=== PATIENT | male | born 1970 | race Two or more races ===

== ENCOUNTER 2017-07-19 13:58 | Inpatient (IN) | payer OTHER ==
[2017-07-19 17:22] VITALS: BMI 28.5
--- NOTE | 2017-07-19 19:18 | HP ---
CIWA Score - CIWA Score Nausea/Vomitin Muscle Tremors: 2 Anxiety: 3 Agitation: 0-Normal Activity Paroxysmal Sweats: 3 Orientation: 0-Oriented Tacttile Disturbances: 0-None Auditory Disturbances: 0-None Visual Disturbances: 0-None Headache: 2-Mild CIWA-Ar Total Score: 12 Admission ROS BHS - HPI Chief Complaint: Alcohol and xanax withdrawal symptoms Allergies/Adverse Reactions: Allergies Allergy/AdvReac Type Severity Reaction Status Date / Time Penicillins Allergy Severe Swelling Verified 07/19/17 17:44 Pork/Porcine Containing Allergy Intermediate Hives Verified 07/19/17 19:19 Products History of Present Illness: 47 yo male with hx of nicotine, xanax, cocaine, and alcohol dependence is her seeking detox. PMHX: Two slip disc on lower back, tendonitis Left arm and shoulder, PTSD, anxiety, depression, bipolar, insomnia. Denies suicidal / homicidal ideation or suicide attempts. Denies hx seizure or overdose hx blackouts in 2009 related to alcohol use. Last detox at [facility] on April 2017. After care plan to attend rehab at [facility]. Exam Limitations: No Limitations - Ebola screening Have you traveled outside of the country in the last 21 days: No Have you had contact with anyone from an Ebola affected area: No Have you been sick,other than usual withdrawal symptoms: No Do you have a fever: No - Review of Systems Constitutional: Chills, Changes in sleep, Unintentional Wgt. Loss (5 lbs) EENT: reports: No Symptoms Reported Respiratory: reports: No Symptoms reported Cardiac: reports: No Symptoms Reported GI: reports: Blood Streaked Bowels (when constipated), Constipated, Nausea, Poor Fluid Intake : reports: No Symptoms Reported Musculoskeletal: reports: Back Pain, Joint Pain, Muscle Pain Integumentary: reports: No Symptoms Reported Neuro: reports: No Symptoms reported Endocrine: reports: Increased Thirst Hematology: reports: See HPI, Anemia Psychiatric: reports: Orientated x3, Anxious Other Systems: Reviewed and Negative Patient History - Patient Medical History Hx Anemia: Yes (MVI ) Hx Asthma: No Hx Chronic Obstructive Pulmonary Disease (COPD): No Hx Cancer: No Hx Cardiac Disorders: No Hx Congestive Heart Failure: No Hx Hypertension: No Hx Hypercholesterolemia: No Hx Pacemaker: No HX Cerebrovascular Accident: No Hx Seizures: No Hx Dementia: No Hx Diabetes: No Hx Gastrointestinal Disorders: No Hx Liver Disease: No Hx Genitourinary Disorders: No Hx Sexually Transmitted Disorders: No Hx Renal Disease (ESRD): No Hx Thyroid Disease: No Hx Human Immunodeficiency Virus (HIV): No (Last tested April 2017) Hx Hepatitis C: No Hx Depression: Yes Hx Suicide Attempt: No Hx Bipolar Disorder: Yes Hx Schizophrenia: No - Patient Surgical History Past Surgical History: No Hx Neurologic Surgery: No Hx Cataract Extraction: No Hx Cardiac Surgery: No Hx Lung Surgery: No Hx Breast Surgery: No Hx Breast Biopsy: No Hx Abdominal Surgery: No Hx Appendectomy: No Hx Cholecystectomy: No Hx Genitourinary Surgery: No Hx Section: No Hx Orthopedic Surgery: No Anesthesia Reaction: No - PPD History Previous Implant?: Yes Documented Results: Negative w/o proof PPD to be Administered?: Yes - Reproductive History Patient is a Female of Child Bearing Age (11 -55 yrs old): No - Smoking Cessation Smoking history: Current every day smoker Have you smoked in the past 12 months: Yes Aproximately how many cigarettes per day: 8 Hx Chewing Tobacco Use: No Initiated information on smoking cessation: Yes 'Breaking Loose' booklet given: 07/19/17 - Substance & Tx. History Hx Alcohol Use: Yes Hx Substance Use: Yes Substance Use Type: Alcohol, Cocaine, Tranquilizers Hx Substance Use Treatment: Yes ([facility] April 2017) - Substances Abused Alcohol Route: Oral Frequency: Daily Amount used: liquor- 1 pint, beer- 5 - (40oz) Age of first use: 12 Date of Last Use: 07/19/17 Cocaine Route: Inhalation Frequency: Daily Amount used: 2gm Age of first use: 26 Date of Last Use: 07/18/17 Alprazolam (Xanax) Route: Oral Frequency: 3-6 times per week Amount used: 6 mg Age of first use: 34 Date of Last Use: 07/16/17 Family Disease History - Family Disease History Family Disease History: Diabetes: Mother (alive, HTN and DM ), Other: Father ( alive, HTN ), Mother Admission Physical Exam BHS - Vital Signs Vital Signs: Vital Signs - 24 hr 07/19/17 17:20 Temperature 97.7 F Pulse Rate 85 Respiratory 19 Rate Blood Pressure 137/81 - Physical General Appearance: Yes: No Apparent Distress, Nourished, Appropriately Dressed HEENTM: Yes: EOMI, Hearing grossly Normal, Normal ENT Inspection, Normocephalic , Normal Voice, UZMA, Pharynx Normal, Tm's normal Respiratory: Yes: Chest Non-Tender, Lungs Clear, Normal Breath Sounds, No Respiratory Distress, No Accessory Muscle Use Neck: Yes: No masses,lesions,Nodules, Trachea in good position Breast: Yes: Breast Exam Deferred Cardiology: Yes: Regular Rhythm, Regular Rate Abdominal: Yes: Normal Bowel Sounds, Non Tender, Flat, Soft Genitourinary: Yes: Within Normal Limits Back: Yes: Muscle Spasm Musculoskeletal: Yes: full range of Motion, Gait Steady, Other (left shoulder pain) Extremities: Yes: Normal Capillary Refill, Normal Inspection, Normal Range of Motion, Non-Tender 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 - Diagnostic (1) Cocaine dependence Current Visit: Yes Status: Acute Qualifiers: Substance use status: uncomplicated Qualified Code(s): F14.20 - Cocaine dependence, uncomplicated (2) Sedative, hypnotic or anxiolytic dependence with withdrawal, uncomplicated Current Visit: Yes Status: Acute (3) Alcohol dependence with uncomplicated withdrawal Current Visit: Yes Status: Acute (4) Chronic back pain Current Visit: Yes Status: Chronic Qualifiers: Back pain location: low back pain Back pain laterality: midline Sciatica presence: without sciatica Qualified Code(s): M54.5 - Low back pain; G89.29 - Other chronic pain; G89.29 - Other chronic pain (5) Left shoulder tendinitis Current Visit: Yes Status: Chronic (6) Insomnia Current Visit: Yes Status: Acute Qualifiers: Insomnia type: unspecified Qualified Code(s): G47.00 - Insomnia, unspecified (7) Psychiatric disorder Current Visit: Yes Status: Suspected (8) Nicotine dependence Current Visit: Yes Status: Acute Qualifiers: Nicotine product type: cigarettes Substance use status: uncomplicated Qualified Code(s): F17.210 - Nicotine dependence, cigarettes, uncomplicated Cleared for Admission [facility] - Detox or Rehab [facility] Level of Care: Medically Managed Detox Regimen/Protocol: Librium [facility] Breath Alcohol Content Breath Alcohol Content: 0 Urine Drug Screen - Results Drug Screen Negative: No Urine Drug Screen Results: [place]ocaine
[2017-07-19] MEDS ORDERED: LOPERAMIDE HCL 2 MG CAPSULE PO PRN (19:23)
[2017-07-19] MEDS ORDERED: MENTHOL/PHENOL 1 EACH UD MM PRN (19:23)
[2017-07-19] MEDS ORDERED: ACETAMINOPHEN 325 MG TABLET (FP) PO PRN (19:23)
[2017-07-19] MEDS ORDERED: hydrOXYzine PAMOATE 50 MG CAPSULE (FP) PO PRN (19:23)
[2017-07-19] MEDS ORDERED: NICOTINE POLACRILEX 2 MG GUM BC PRN (19:23)
[2017-07-19] MEDS ORDERED: guaiFENesin/D-METHORPHAN HB 10 ML UNIT-DOSE CUPS PO PRN (19:23)
[2017-07-19] MEDS ORDERED: chlordiazePOXIDE HCL 25 MG CAPSULE PO PRN (19:23)
[2017-07-19] MEDS ORDERED: IBUPROFEN 400 MG TABLET (FP) PO PRN (19:23)
[2017-07-19] MEDS ORDERED: P-EPHED 60MG/TRIPROLIDI 2.5MG TABLET PO PRN (19:23)
[2017-07-19] MEDS ORDERED: chlordiazePOXIDE HCL 25 MG CAPSULE PO ONE (19:23)
[2017-07-19] MEDS ORDERED: MAGNESIUM CITRATE 300 ML BOTTLE PO PRN (19:23)
[2017-07-19] MEDS ORDERED: MAG HYDROX/AL HYDROX/SIMETH 30 ML UNIT-DOSE CUP PO PRN (19:23)
[2017-07-19] MEDS ORDERED: MAGNESIUM HYDROX 2400MG/30ML ORAL SUSPENSION 30 ML CUP PO PRN (19:23)
[2017-07-19] MEDS ORDERED: CYCLOBENZAPRINE HCL 5 MG TABLET PO PRN (19:32)
[2017-07-19] MEDS: DOCUSATE SODIUM 100 MG CAPSULE (FP) PO SCH (20:21)
[2017-07-19] MEDS: valACYclovir HCL 500 MG TABLET (FP) PO SCH (20:21)
[2017-07-19] MEDS ORDERED: HYDROXYZINE HCL PO SCH (22:00)
[2017-07-19] MEDS: chlordiazePOXIDE HCL 25 MG CAPSULE PO SCH (22:21)
[2017-07-19] MEDS: THIAMINE HCL 100 MG TABLET (FP) PO SCH (22:21)
[2017-07-19] MEDS: MELATONIN 5 MG TABLETS PO SCH (22:21)
[2017-07-19] MEDS: GABAPENTIN 300 MG CAPSULE (FP) PO SCH (22:21)
[2017-07-19 22:54] LABS: URINE APPEARANCE CLEAR; URINE BILIRUBIN NEGATIVE (NEGATIVE); URINE BLOOD NEGATIVE (NEGATIVE); URINE COLOR YELLOW; URINE GLUCOSE (UA) NEGATIVE (NEGATIVE); URINE KETONE NEGATIVE (NEGATIVE); URINE LEUK ESTERASE NEGATIVE (NEGATIVE); URINE NITRITE NEGATIVE (NEGATIVE); URINE PROTEIN NEGATIVE (NEGATIVE); URINE UROBILINOGEN NEGATIVE mg/dL (0.2-1.0)
[2017-07-20] MEDS: GABAPENTIN 300 MG CAPSULE (FP) PO SCH ×3 (05:51→22:02)
[2017-07-20] MEDS: chlordiazePOXIDE HCL 25 MG CAPSULE PO SCH ×4 (05:51→22:03)
[2017-07-20 10:04] LABS: HEMATOCRIT 39.6 % (35.4-49); HEMOGLOBIN 13.3 GM/dL (11.7-16.9); MCH 30.9 pg (25.7-33.7); MCHC 33.7 g/dl (32.0-35.9); MEAN CELL VOLUME 91.7 fl (80-96); PLATELET COUNT 365 K/MM3 (134-434); RBC 4.31 M/mm3 (4.00-5.60)
--- NOTE | 2017-07-20 10:04 | EKG ---
Test Reason : Blood Pressure : / mmHG Vent. Rate : 081 BPM Atrial Rate : 081 BPM P-R Int : 144 ms QRS Dur : 094 ms QT Int : 368 ms P-R-T Axes : 020 022 036 degrees QTc Int : 427 ms NORMAL SINUS RHYTHM INCOMPLETE RBBB NO PREVIOUS ECGS AVAILABLE Confirmed by DELROY MARTINEZ MD ([id number]) on 07/20/2017 10:03:57 AM Referred By: Confirmed By:DELROY MARTINEZ MD
[2017-07-20 10:19] LABS: CHLORIDE 102 mmol/L (98-107); POTASSIUM 4.2 mmol/L (3.5-5.1); SODIUM 141 mmol/L (136-145)
[2017-07-20] MEDS: NICOTINE 14 MG/24 HOURS TOPICAL PATCH TD SCH (10:20)
[2017-07-20] MEDS: DOCUSATE SODIUM 100 MG CAPSULE (FP) PO SCH (10:20)
[2017-07-20] MEDS: valACYclovir HCL 500 MG TABLET (FP) PO SCH (10:20)
[2017-07-20] MEDS: PRENATAL VITAMINS W/ FOLIC ACID TABLET (FP) PO SCH (10:20)
[2017-07-20 10:25] LABS: ALBUMIN 3.4 g/dl (3.4-5.0); ALK PHOS 64 U/L (45-117); ANION GAP 11 (8-16); BILIRUBIN,TOTAL 0.4 mg/dL (0.2-1.0); BLOOD UREA NITROGEN 18 mg/dL (7-18); CALCIUM 8.8 mg/dL (8.5-10.1); CO2 28 mmol/L (21-32); CREATININE 1.1 mg/dL (0.7-1.3); GLUCOSE,RANDOM 96 mg/dL (74-106); SGOT/AST 18 U/L (15-37); SGPT/ALT 29 U/L (12-78); TOT PROT 7.6 g/dl (6.4-8.2)
[2017-07-20] MEDS: DICLOFENAC SODIUM 50 MG PO SCH ×3 (10:59→22:03)
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
--- NOTE | 2017-07-20 12:39 | PN ---
S CIWA - CIWA Score Nausea/Vomitin-Int. Nausea w/Dry Heave (AND DIARRHEA) Muscle Tremors: 3 Anxiety: 4-Mod. Anxious/Guarded Agitation: 2 Paroxysmal Sweats: No Perspiration Orientation: 0-Oriented Tacttile Disturbances: 0-None Auditory Disturbances: 0-None Visual Disturbances: 0-None Headache: 2-Mild CIWA-Ar Total Score: 15 S Progress Note (SOAP) Subjective: ANXIETY,TREMORS,HEADACHE,NAUSEA AND DIARRHEA. Objective: 07/20/17 12:38 Vital Signs Temperature 97.0 F L 07/20/17 10:33 Pulse Rate 85 07/20/17 10:33 Respiratory Rate 18 07/20/17 10:33 Blood Pressure 106/76 07/20/17 10:33 O2 Sat by Pulse Oximetry (%) Laboratory Last Values WBC 8.0 K/mm3 (4.0-10.0) 07/20/17 07:00 RBC 4.31 M/mm3 (4.00-5.60) 07/20/17 07:00 Hgb 13.3 GM/dL (11.7-16.9) 07/20/17 07:00 Hct 39.6 % (35.4-49) 07/20/17 07:00 MCV 91.7 fl (80-96) 07/20/17 07:00 MCH 30.9 pg (25.7-33.7) 07/20/17 07:00 MCHC 33.7 g/dl (32.0-35.9) 07/20/17 07:00 RDW 14.0 % (11.9-15.9) 07/20/17 07:00 Plt Count 365 K/MM3 (134-434) 07/20/17 07:00 MPV 8.0 fl (7.5-11.1) 07/20/17 07:00 Sodium 141 mmol/L (136-145) 07/20/17 07:00 Potassium 4.2 mmol/L (3.5-5.1) 07/20/17 07:00 Chloride 102 mmol/L (98-107) 07/20/17 07:00 Carbon Dioxide 28 mmol/L (21-32) 07/20/17 07:00 Anion Gap 11 (8-16) 07/20/17 07:00 BUN 18 mg/dL (7-18) 07/20/17 07:00 Creatinine 1.1 mg/dL (0.7-1.3) 07/20/17 07:00 Creat Clearance w eGFR > 60 (>60) 07/20/17 07:00 Random Glucose 96 mg/dL (74-106) 07/20/17 07:00 Calcium 8.8 mg/dL (8.5-10.1) 07/20/17 07:00 Total Bilirubin 0.4 mg/dL (0.2-1.0) 07/20/17 07:00 AST 18 U/L (15-37) 07/20/17 07:00 ALT 29 U/L (12-78) 07/20/17 07:00 Alkaline Phosphatase 64 U/L (45-117) 07/20/17 07:00 Total Protein 7.6 g/dl (6.4-8.2) 07/20/17 07:00 Albumin 3.4 g/dl (3.4-5.0) 07/20/17 07:00 Urine Color Yellow 07/19/17 20:20 Urine Appearance Clear 07/19/17 20:20 Urine pH 5.0 (5.0-8.0) 07/19/17 20:20 Ur Specific [place] 1.026 (1.001-1.035) 07/19/17 20:20 Urine Protein Negative (NEGATIVE) 07/19/17 20:20 Urine Glucose (UA) Negative (NEGATIVE) 07/19/17 20:20 Urine Ketones Negative (NEGATIVE) 07/19/17 20:20 Urine Blood Negative (NEGATIVE) 07/19/17 20:20 Urine Nitrite Negative (NEGATIVE) 07/19/17 20:20 Urine Bilirubin Negative (NEGATIVE) 07/19/17 20:20 Urine Urobilinogen Negative mg/dL (0.2-1.0) 07/19/17 20:20 Ur Leukocyte Esterase Negative (NEGATIVE) 07/19/17 20:20 HIV 1&2 Antibody Screen Negative 07/20/17 07:00 HIV P24 Antigen Negative 07/20/17 07:00 Assessment: 07/20/17 12:38 WITHDRAWAL SX Plan: CONTINUE DETOX TYLENOL PRN FOR HEADACHE IMODIUM PRN FOR DIARRHEA ZOFRAN PRN FOR NAUSEA OR VOMITING
[2017-07-20] MEDS ORDERED: ONDANSETRON *ODT* 4 MG TABLET SL PRN (12:41)
[2017-07-20] MEDS: ESCITALOPRAM OXALATE 20 MG TABLET (FP) PO SCH (13:19)
--- NOTE | 2017-07-20 15:17 | PN ---
BHS Progress Note Note: PT C/O SKIN ITHCH. NO RASH. HAS BEEN ON BENADRYL 25 MG OR ATARAX AT HOME FROM HIS DOCTOR FOR ITCH IN THE PAST. PLAN:START BENADRYL 25 MG PO TID PRN FOR ITCH.
[2017-07-20] MEDS: diphenhydrAMINE HCL 25 MG CAPSULE (FP) PO PRN (17:17)
[2017-07-20] MEDS ORDERED: QUEtiapine FUMARATE 300 MG TABLET PO SCH (22:00)
[2017-07-20] MEDS ORDERED: traZODone HCL 100 MG TABLET (FP) PO SCH (22:00)
[2017-07-20] MEDS: THIAMINE HCL 100 MG TABLET (FP) PO SCH (22:02)
[2017-07-20] MEDS: MELATONIN 5 MG TABLETS PO SCH (22:03)
[2017-07-21] MEDS: chlordiazePOXIDE HCL 25 MG CAPSULE PO SCH ×3 (05:47→21:44)
[2017-07-21] MEDS: GABAPENTIN 300 MG CAPSULE (FP) PO SCH ×2 (05:47→14:50)
[2017-07-21] MEDS: DICLOFENAC SODIUM 50 MG PO SCH (10:39)
[2017-07-21] MEDS: ESCITALOPRAM OXALATE 20 MG TABLET (FP) PO SCH (10:39)
[2017-07-21] MEDS: NICOTINE 14 MG/24 HOURS TOPICAL PATCH TD SCH (10:39)
[2017-07-21] MEDS: DOCUSATE SODIUM 100 MG CAPSULE (FP) PO SCH (10:39)
[2017-07-21] MEDS: PRENATAL VITAMINS W/ FOLIC ACID TABLET (FP) PO SCH (10:39)
[2017-07-21] MEDS: valACYclovir HCL 500 MG TABLET (FP) PO SCH (10:39)
[2017-07-21] MEDS: diphenhydrAMINE HCL 25 MG CAPSULE (FP) PO PRN (10:41)
--- NOTE | 2017-07-21 15:54 | PN ---
[facility] CIWA - CIWA Score Nausea/Vomitin-No Nausea/No Vomiting Muscle Tremors: None Anxiety: 4-Mod. Anxious/Guarded Agitation: 2 Paroxysmal Sweats: 3 Orientation: 0-Oriented Tacttile Disturbances: 3-Moderate Itch/Numb/Burn Auditory Disturbances: 2-Mild Harshness/Frighten Visual Disturbances: 2-Mild Sensitivity Headache: 0-None Present CIWA-Ar Total Score: 16 S Progress Note (SOAP) Subjective: Diarrhea, Sweating, Chills, Fatigue. Objective: PATIENT A & O X 3, OBSERVED AMBULATING ON UNIT. NO ACUTE DISTRESS. 07/21/17 15:53 Vital Signs Temperature 98.8 F 07/21/17 13:44 Pulse Rate 80 07/21/17 13:44 Respiratory Rate 18 07/21/17 13:44 Blood Pressure 111/64 07/21/17 13:44 O2 Sat by Pulse Oximetry (%) Laboratory Tests 07/19/17 07/20/17 07/20/17 20:20 07:00 07:00 WBC 8.0 RBC 4.31 Hgb 13.3 Hct 39.6 MCV 91.7 MCH 30.9 MCHC 33.7 RDW 14.0 Plt Count 365 MPV 8.0 Sodium Potassium Chloride Carbon Dioxide Anion Gap BUN Creatinine Creat Clearance w eGFR Random Glucose Calcium Total Bilirubin AST ALT Alkaline Phosphatase Total Protein Albumin Urine Color Yellow Urine Appearance Clear Urine pH 5.0 Ur Specific [place] 1.026 Urine Protein Negative Urine Glucose (UA) Negative Urine Ketones Negative Urine Blood Negative Urine Nitrite Negative Urine Bilirubin Negative Urine Urobilinogen Negative Ur Leukocyte Esterase Negative RPR Titer HIV 1&2 Antibody Screen Negative HIV P24 Antigen Negative 07/20/17 07/20/17 07:00 07:00 WBC RBC Hgb Hct MCV MCH MCHC RDW Plt Count MPV Sodium 141 Potassium 4.2 Chloride 102 Carbon Dioxide 28 Anion Gap 11 BUN 18 Creatinine 1.1 Creat Clearance w eGFR > 60 Random Glucose 96 Calcium 8.8 Total Bilirubin 0.4 AST 18 ALT 29 Alkaline Phosphatase 64 Total Protein 7.6 Albumin 3.4 Urine Color Urine Appearance Urine pH Ur Specific Duck Urine Protein Urine Glucose (UA) Urine Ketones Urine Blood Urine Nitrite Urine Bilirubin Urine Urobilinogen Ur Leukocyte Esterase RPR Titer Nonreactive HIV 1&2 Antibody Screen HIV P24 Antigen LABS NOTED. Assessment: 03/24/18 15:53 WITHDRAWAL SYMPTOMS. Plan: CONTINUE DETOX.
[2017-07-21 17:32] VITALS: BP 107/70; PULSE 64; TEMP 97.9
--- NOTE | 2017-07-21 19:20 | DS ---
[facility] Detox Discharge Summary Admission Date: 07/19/17 Discharge Date: 07/21/17 - History Additional Comments: pt insists on leaving, states he has a family emergency as his daughter is in the hospital Unsure how pt got news. Pt insists he cannot stay to complete detox A & O x 3, gait steady, no acute distress noted - Physical Exam Results Vital Signs: Vital Signs Temperature 97.9 F 07/21/17 17:32 Pulse Rate 64 07/21/17 17:32 Respiratory Rate 20 07/21/17 17:32 Blood Pressure 107/70 07/21/17 17:32 O2 Sat by Pulse Oximetry (%) Pertinent Admission Physical Exam Findings: withdrawal sx - Medication Discharge Medications: Ambulatory Orders Acetaminophen [Tylenol Arthritis] 650 mg PO DAILY 07/19/17 Diclofenac Sodium [Diclofenac Sodium ER] 50 mg PO BID 07/19/17 Escitalopram Oxalate [Lexapro -] 20 mg PO DAILY 07/19/17 Gabapentin [Neurontin -] 300 mg PO TID 07/19/17 Quetiapine Fumarate [Seroquel -] 300 mg PO BID 07/19/17 Valacyclovir HCl [Valtrex -] 500 mg PO DAILY 07/19/17 hydrOXYzine HCL [Atarax -] 50 mg PO TID 07/19/17 traZODone HCL [Desyrel -] 100 mg PO HS 07/19/17 - Diagnosis (1) Alcohol dependence with uncomplicated withdrawal Current Visit: Yes Status: Acute (2) Cocaine dependence Current Visit: Yes Status: Acute Qualifiers: Substance use status: uncomplicated Qualified Code(s): F14.20 - Cocaine dependence, uncomplicated (3) Nicotine dependence Current Visit: Yes Status: Acute Qualifiers: Nicotine product type: cigarettes Substance use status: in withdrawal Qualified Code(s): F17.213 - Nicotine dependence, cigarettes, with withdrawal (4) Sedative, hypnotic or anxiolytic dependence with withdrawal, uncomplicated Current Visit: Yes Status: Acute (5) Chronic back pain Current Visit: Yes Status: Chronic Qualifiers: Back pain location: low back pain Back pain laterality: midline Sciatica presence: without sciatica Qualified Code(s): M54.5 - Low back pain; G89.29 - Other chronic pain; G89.29 - Other chronic pain - AMA Did Patient Leave Against Medical Advice: Yes
[2017-07-21] MEDS ORDERED: chlordiazePOXIDE 5 MG CAPSULE PO SCH (23:00)
[2017-07-22] MEDS ORDERED: chlordiazePOXIDE HCL 10 MG CAPSULE PO SCH (23:00)
== END 2017-07-21 19:15 | disposition left against medical advice (07) | DRG 770 ==
LOC: YASAS 13:58 → Y3N 17:34
PROVIDERS: ADMIT Internal Medicine; ATTEND Internal Medicine
PROC: HZ2ZZZZ Detoxification Services for Substance Abuse Treatment (ICD-10-PCS; principal; 2017-07-19)
DX: F13.230 Sedative, hypnotic or anxiolytic dependence with withdrawal, uncomplicated (principal); F10.230 Alcohol dependence with withdrawal, uncomplicated; F14.20 Cocaine dependence, uncomplicated; F17.213 Nicotine dependence, cigarettes, with withdrawal; F43.10 Post-traumatic stress disorder, unspecified; F31.9 Bipolar disorder, unspecified; G47.00 Insomnia, unspecified; M54.5 Low back pain; G89.29 Other chronic pain; M75.82 Other shoulder lesions, left shoulder
CPT/HCPCS: 36415; 80053; 81003; 85027; 86593; 87389; 93005; 93010

== ENCOUNTER 2017-09-23 15:57 | Inpatient (IN) | payer OTHER ==
[2017-09-23 19:05] VITALS: BMI 27.5
--- NOTE | 2017-09-23 20:19 | HP ---
CIWA Score - CIWA Score Nausea/Vomitin Muscle Tremors: 3 Anxiety: 4-Mod. Anxious/Guarded Agitation: 0-Normal Activity Paroxysmal Sweats: 3 Orientation: 1-Uncertain about Date Tacttile Disturbances: 0-None Auditory Disturbances: 0-None Visual Disturbances: 0-None Headache: 0-None Present CIWA-Ar Total Score: 13 Admission ROS S - HPI Chief Complaint: Alcohol withdrawal symptoms Allergies/Adverse Reactions: Allergies Allergy/AdvReac Type Severity Reaction Status Date / Time Penicillins Allergy Severe Swelling Verified 09/23/17 18:58 Pork/Porcine Containing Allergy Intermediate Hives Verified 09/23/17 18:58 Products History of Present Illness: 47 years old male with history of xanax, cocaine, and alcohol dependence is seeking admission to detox. Patient has been to previous detox and reports 5 years of sobriety. He has medical history of herpes, anemia, tendonitis of the left arm, neuropathy, anxiety and depression. He denies suicidal / homicidal ideation or suicide attempts. Exam Limitations: No Limitations - Ebola screening Have you traveled outside of the country in the last 21 days: No (N) Have you had contact with anyone from an Ebola affected area: No Have you been sick,other than usual withdrawal symptoms: No Do you have a fever: No - Review of Systems Constitutional: Chills, Malaise, Night Sweats, Changes in sleep, Weakness EENT: reports: No Symptoms Reported Respiratory: reports: No Symptoms reported Cardiac: reports: No Symptoms Reported GI: reports: Diarrhea (x 2), Nausea, Poor Appetite, Poor Fluid Intake, Abdominal cramping : reports: No Symptoms Reported Musculoskeletal: reports: Back Pain, Muscle Pain Integumentary: reports: Dryness, Flushing Neuro: reports: Tingling, Tremors, Weakness Endocrine: reports: No Symptoms Reported Hematology: reports: No Symptoms Reported Psychiatric: reports: Anxious, Depressed Other Systems: Reviewed and Negative Patient History - Patient Medical History Hx Anemia: Yes (MVI ) Hx Asthma: No Hx Chronic Obstructive Pulmonary Disease (COPD): No Hx Cancer: No Hx Cardiac Disorders: No Hx Congestive Heart Failure: No Hx Hypertension: No Hx Hypercholesterolemia: No Hx Pacemaker: No HX Cerebrovascular Accident: No Hx Seizures: No Hx Dementia: No Hx Diabetes: No Hx Gastrointestinal Disorders: No Hx Liver Disease: No Hx Genitourinary Disorders: No Hx Sexually Transmitted Disorders: Yes (Herpes-Not treated and not on medication ) Hx Renal Disease (ESRD): No Hx Thyroid Disease: No Hx Human Immunodeficiency Virus (HIV): No (Last tested April 2017) Hx Hepatitis C: No Hx Depression: Yes (Seroquel) Hx Suicide Attempt: No Hx Bipolar Disorder: Yes (Trazodone, Vistaril, Lexapro) Hx Schizophrenia: No Other Medical History: Anxiety- Trazodone, Vistaril, Lexapro - Patient Surgical History Past Surgical History: No Hx Neurologic Surgery: No Hx Cataract Extraction: No Hx Cardiac Surgery: No Hx Lung Surgery: No Hx Abdominal Surgery: No Hx Appendectomy: No Hx Cholecystectomy: No Hx Genitourinary Surgery: No Hx Orthopedic Surgery: No Anesthesia Reaction: No - PPD History Previous Implant?: Yes Documented Results: Negative w/proof Implanted On Prior [facility] Admission?: Yes Date: 07/21/17 PPD to be Administered?: No - Reproductive History Patient is a Female of Child Bearing Age (11 -55 yrs old): No (MALE) - Smoking Cessation Smoking history: Current every day smoker Have you smoked in the past 12 months: Yes Aproximately how many cigarettes per day: 8 Hx Chewing Tobacco Use: No Initiated information on smoking cessation: Yes 'Breaking Loose' booklet given: 09/23/17 - Substance & Tx. History Hx Alcohol Use: Yes Hx Substance Use: Yes Substance Use Type: Cocaine Hx Substance Use Treatment: Yes ([facility]) - Substances Abused Alcohol Route: Oral Frequency: Daily Amount used: 4-5 40 ounces of beer, 1/2 pint of rum Age of first use: 12 Date of Last Use: 09/22/17 Alprazolam (Xanax) Route: Oral Frequency: 3-6 times per week Amount used: 6 mg when used Age of first use: 30 Date of Last Use: 09/21/17 Cocaine Route: Smoking Frequency: Daily Amount used: $100 Age of first use: 26 Date of Last Use: 09/23/17 Family Disease History - Family Disease History Family Disease History: Diabetes: Mother (alive, HTN and DM ), Other: Father ( alive, HTN ), Mother Admission Physical Exam BHS - Vital Signs Vital Signs: Vital Signs - 24 hr 09/23/17 18:32 Temperature 98.3 F Pulse Rate 91 H Respiratory 18 Rate Blood Pressure 127/82 - Physical General Appearance: Yes: Moderate Distress, Tremorous, Irritable, Anxious HEENTM: Yes: EOMI, Normal ENT Inspection, Normocephalic, Normal Voice, UZMA Respiratory: Yes: Lungs Clear, Normal Breath Sounds, No Respiratory Distress Neck: Yes: Supple Breast: Yes: Breast Exam Deferred Cardiology: Yes: Tachycardia Abdominal: Yes: Normal Bowel Sounds Genitourinary: Yes: Within Normal Limits Back: Yes: Normal Inspection Extremities: Yes: Normal Inspection Neurological: Yes: Alert, Normal Mood/Affect Integumentary: Yes: Dry Lymphatic: Yes: Within Normal Limits - Diagnostic (1) Depression Current Visit: Yes Status: Chronic Qualifiers: Depression Type: unspecified Qualified Code(s): F32.9 - Major depressive disorder, single episode, unspecified (2) Anxiety Current Visit: Yes Status: Chronic (3) Herpes Current Visit: Yes Status: Chronic (4) Alcohol dependence with uncomplicated withdrawal Current Visit: Yes Status: Chronic (5) Cocaine dependence Current Visit: No Status: Chronic Qualifiers: Substance use status: uncomplicated Qualified Code(s): F14.20 - Cocaine dependence, uncomplicated (6) Nicotine dependence Current Visit: Yes Status: Chronic Qualifiers: Nicotine product type: cigarettes Substance use status: in withdrawal Qualified Code(s): F17.213 - Nicotine dependence, cigarettes, with withdrawal (7) Sedative, hypnotic or anxiolytic dependence with withdrawal, uncomplicated Current Visit: Yes Status: Chronic (8) Left shoulder tendinitis Current Visit: Yes Status: Chronic [facility] Level of Care: Medically Managed Detox Regimen/Protocol: [facility] Breath Alcohol Content Breath Alcohol Content: 0 Urine Drug Screen - Results Drug Screen Negative: No Urine Drug Screen Results: [place]-Cocaine, BZO-Benzodiazepines
[2017-09-23] MEDS ORDERED: guaiFENesin/D-METHORPHAN HB 10 ML UNIT-DOSE CUPS PO PRN (20:28)
[2017-09-23] MEDS ORDERED: NICOTINE POLACRILEX 2 MG GUM BC PRN (20:28)
[2017-09-23] MEDS ORDERED: P-EPHED 60MG/TRIPROLIDI 2.5MG TABLET PO PRN (20:28)
[2017-09-23] MEDS ORDERED: MAGNESIUM CITRATE 300 ML BOTTLE PO PRN (20:28)
[2017-09-23] MEDS ORDERED: MAGNESIUM HYDROX 2400MG/30ML ORAL SUSPENSION 30 ML CUP PO PRN (20:28)
[2017-09-23] MEDS ORDERED: MAG HYDROX/AL HYDROX/SIMETH 30 ML UNIT-DOSE CUP PO PRN (20:28)
[2017-09-23] MEDS ORDERED: LOPERAMIDE HCL 2 MG CAPSULE PO PRN (20:28)
[2017-09-23] MEDS ORDERED: IBUPROFEN 400 MG TABLET (FP) PO PRN (20:28)
[2017-09-23] MEDS ORDERED: chlordiazePOXIDE HCL 25 MG CAPSULE PO PRN (20:28)
[2017-09-23] MEDS ORDERED: MENTHOL/PHENOL 1 EACH UD MM PRN (20:28)
[2017-09-23] MEDS ORDERED: MELATONIN 5 MG TABLETS PO PRN (22:00)
[2017-09-23] MEDS: THIAMINE HCL 100 MG TABLET (FP) PO SCH (22:15)
[2017-09-23] MEDS: chlordiazePOXIDE HCL 25 MG CAPSULE PO SCH (22:15)
[2017-09-23] MEDS: ACETAMINOPHEN 325 MG TABLET (FP) PO PRN (22:16)
[2017-09-23 23:05] LABS: URINE APPEARANCE TURBID; URINE BILIRUBIN NEGATIVE (<2.0 mg/dL); URINE COLOR DKYELLOW; URINE GLUCOSE (UA) NEGATIVE (NEGATIVE); URINE KETONE TRACE (NEGATIVE); URINE LEUK ESTERASE NEGATIVE (NEGATIVE); URINE NITRITE NEGATIVE (NEGATIVE); URINE UROBILINOGEN 4.0 E.U/dl mg/dL (0.2-1.0)
[2017-09-23 23:08] LABS: URINE PROTEIN 1+ (NEGATIVE)
[2017-09-23 23:10] LABS: EPI CELLS RARE /HPF (FEW); URINE MUCUS RARE
[2017-09-24] MEDS: chlordiazePOXIDE HCL 25 MG CAPSULE PO SCH ×4 (05:38→22:05)
--- NOTE | 2017-09-24 08:49 | EKG ---
Test Reason : Blood Pressure : / mmHG Vent. Rate : 073 BPM Atrial Rate : 073 BPM P-R Int : 136 ms QRS Dur : 094 ms QT Int : 408 ms P-R-T Axes : 030 052 045 degrees QTc Int : 449 ms NORMAL SINUS RHYTHM NORMAL ECG WHEN COMPARED WITH ECG OF 19-JUL-2017 19:05, NO SIGNIFICANT CHANGE WAS FOUND Confirmed by BRENDAN GRANT MD ([id number]) on 09/24/2017 8:49:02 AM Referred By: Confirmed By:BRENDAN GRANT MD
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
[2017-09-24] MEDS ORDERED: QUEtiapine FUMARATE 300 MG TABLET PO SCH (10:00)
[2017-09-24] MEDS: valACYclovir HCL 500 MG TABLET (FP) PO SCH (10:30)
[2017-09-24] MEDS: PRENATAL VITAMINS W/ FOLIC ACID TABLET (FP) PO SCH (10:30)
[2017-09-24] MEDS: ESCITALOPRAM OXALATE 20 MG TABLET (FP) PO SCH (10:30)
[2017-09-24 10:31] LABS: HEMATOCRIT 36.2 % (35.4-49); HEMOGLOBIN 12.3 GM/dL (11.7-16.9); MCH 30.5 pg (25.7-33.7); MCHC 33.9 g/dl (32.0-35.9); MEAN CELL VOLUME 90.2 fl (80-96); MEAN PLT VOLUME 8.1 fl (7.5-11.1); PLATELET COUNT 329 K/MM3 (134-434); RBC 4.02 M/mm3 (4.00-5.60); RDW 13.7 % (11.9-15.9); WHITE BLOOD COUNT 6.5 K/mm3 (4.0-10.0)
[2017-09-24] MEDS: NICOTINE 14 MG/24 HOURS TOPICAL PATCH TD SCH (10:31)
[2017-09-24 10:40] LABS: ANION GAP 4 (8-16); BLOOD UREA NITROGEN 16 mg/dL (7-18); CHLORIDE 107 mmol/L (98-107); CO2 30 mmol/L (21-32); GLUCOSE,RANDOM 95 mg/dL (74-106); POTASSIUM 3.8 mmol/L (3.5-5.1); SGOT/AST 30 U/L (15-37); SGPT/ALT 38 U/L (12-78); SODIUM 141 mmol/L (136-145)
[2017-09-24 10:50] LABS: ALK PHOS 62 U/L (45-117); BILIRUBIN,TOTAL 0.2 mg/dL (0.2-1.0); CALCIUM 8.5 mg/dL (8.5-10.1); CREATININE 1.1 mg/dL (0.7-1.3); TOT PROT 6.5 g/dl (6.4-8.2)
[2017-09-24] MEDS: DICLOFENAC SODIUM 75 MG TABLET.DR PO SCH ×2 (13:01→22:43)
--- NOTE | 2017-09-24 13:28 | PN ---
BHS COWS - Scale Resting Pulse: 0= GA 80 or Below Sweatin= Chills/Flushing Restless Observation: 3= Extraneous Movement Pupil Size: 1= Pupils >than Normal Bone or Joint Aches: 2= Severe Diffuse Aches Runny Nose/ Eye Tearin= Runny Nose/Eyes GI Upset > 30mins: 2= Nausea/Diarrhea Tremor Observation of Outstretched Hands: 2= Slight Tremor Visible Yawning Observation: 1= 1-2x During Session Anxiety or Irritability: 2=Irritable/Anxious Goose Flesh Skin: 0=Smooth Skin COWS Score: 16 S Progress Note (SOAP) Subjective: ALERT,IRRITABLE,ANXIOUS,INTERRUPTED SLEEP,TREMOR Objective: 09/24/17 13:25 Vital Signs Temperature 97.7 F 09/24/17 09:32 Pulse Rate 78 09/24/17 09:32 Respiratory Rate 18 09/24/17 09:32 Blood Pressure 141/91 09/24/17 09:32 O2 Sat by Pulse Oximetry (%) EKG NSR,NORMAL ECG PROLONG QT 408/449 NO CHEST PAIN,NO SOB,NO DIZZINESS Laboratory Last Values WBC 6.5 K/mm3 (4.0-10.0) 09/24/17 07:55 RBC 4.02 M/mm3 (4.00-5.60) 09/24/17 07:55 Hgb 12.3 GM/dL (11.7-16.9) 09/24/17 07:55 Hct 36.2 % (35.4-49) 09/24/17 07:55 MCV 90.2 fl (80-96) 09/24/17 07:55 MCH 30.5 pg (25.7-33.7) 09/24/17 07:55 MCHC 33.9 g/dl (32.0-35.9) 09/24/17 07:55 RDW 13.7 % (11.9-15.9) 09/24/17 07:55 Plt Count 329 K/MM3 (134-434) 09/24/17 07:55 MPV 8.1 fl (7.5-11.1) 09/24/17 07:55 Sodium 141 mmol/L (136-145) 09/24/17 07:55 Potassium 3.8 mmol/L (3.5-5.1) 09/24/17 07:55 Chloride 107 mmol/L (98-107) 09/24/17 07:55 Carbon Dioxide 30 mmol/L (21-32) 09/24/17 07:55 Anion Gap 4 (8-16) L 09/24/17 07:55 BUN 16 mg/dL (7-18) 09/24/17 07:55 Creatinine 1.1 mg/dL (0.7-1.3) 09/24/17 07:55 Creat Clearance w eGFR > 60 (>60) 09/24/17 07:55 Random Glucose 95 mg/dL (74-106) 09/24/17 07:55 Calcium 8.5 mg/dL (8.5-10.1) 09/24/17 07:55 Total Bilirubin 0.2 mg/dL (0.2-1.0) D 09/24/17 07:55 AST 30 U/L (15-37) D 09/24/17 07:55 ALT 38 U/L (12-78) D 09/24/17 07:55 Alkaline Phosphatase 62 U/L (45-117) 09/24/17 07:55 Total Protein 6.5 g/dl (6.4-8.2) 09/24/17 07:55 Albumin 3.0 g/dl (3.4-5.0) L 09/24/17 07:55 Urine Color Dkyellow 09/23/17 22:50 Urine Appearance Turbid 09/23/17 22:50 Urine pH 5.0 (5.0-8.0) 09/23/17 22:50 Ur Specific [place] 1.032 (1.001-1.035) 09/23/17 22:50 Urine Protein 1+ (NEGATIVE) H 09/23/17 22:50 Urine Glucose (UA) Negative (NEGATIVE) 09/23/17 22:50 Urine Ketones Trace (NEGATIVE) H 09/23/17 22:50 Urine Blood Negative (NEGATIVE) 09/23/17 22:50 Urine Nitrite Negative (NEGATIVE) 09/23/17 22:50 Urine Bilirubin Negative (<2.0 mg/dL) 09/23/17 22:50 Urine Urobilinogen 4.0 e.u/dl mg/dL (0.2-1.0) 09/23/17 22:50 Ur Leukocyte Esterase Negative (NEGATIVE) 09/23/17 22:50 Urine WBC (Auto) 57 /hpf (3-5) 09/23/17 22:50 Urine RBC (Auto) 1 /hpf (0-3) 09/23/17 22:50 Ur Epithelial Cells Rare /HPF (FEW) 09/23/17 22:50 Urine Mucus Rare 09/23/17 22:50 RPR Titer Nonreactive (NONREACTIVE) 09/24/17 07:55 Assessment: 09/24/17 13:27 WITHDRAWAL SYMPTOM Plan: CONTINUE DETOX,REPEAT UA R/O UTI,ENCOURAGE ORAL FLUID
[2017-09-24] MEDS: GABAPENTIN 300 MG CAPSULE (FP) PO SCH ×2 (15:18→22:05)
[2017-09-24] MEDS: DOCUSATE SODIUM 100 MG CAPSULE (FP) PO SCH ×2 (15:18→22:06)
[2017-09-24] MEDS ORDERED: ZOLPIDEM TARTRATE 10 MG TABLET (PARK CARE ONLY) PO PRN (22:00)
[2017-09-24] MEDS: QUEtiapine FUMARATE 300 MG TABLET PO SCH (22:05)
[2017-09-24] MEDS: THIAMINE HCL 100 MG TABLET (FP) PO SCH (22:06)
[2017-09-24] MEDS: traZODone HCL 100 MG TABLET (FP) PO SCH (22:06)
[2017-09-24] MEDS: hydrOXYzine PAMOATE 50 MG CAPSULE (FP) PO SCH (22:06)
[2017-09-25] MEDS: chlordiazePOXIDE HCL 25 MG CAPSULE PO SCH ×3 (07:50→17:55)
[2017-09-25] MEDS: DOCUSATE SODIUM 100 MG CAPSULE (FP) PO SCH ×3 (07:51→22:12)
[2017-09-25] MEDS: GABAPENTIN 300 MG CAPSULE (FP) PO SCH ×3 (07:51→22:12)
[2017-09-25] MEDS: hydrOXYzine PAMOATE 50 MG CAPSULE (FP) PO SCH ×2 (10:30→22:12)
[2017-09-25] MEDS: valACYclovir HCL 500 MG TABLET (FP) PO SCH (10:54)
[2017-09-25] MEDS: ESCITALOPRAM OXALATE 20 MG TABLET (FP) PO SCH (10:54)
[2017-09-25] MEDS: QUEtiapine FUMARATE 300 MG TABLET PO SCH ×2 (10:54→22:12)
[2017-09-25] MEDS: DICLOFENAC SODIUM 75 MG TABLET.DR PO SCH ×2 (10:55→23:00)
[2017-09-25] MEDS: NICOTINE 14 MG/24 HOURS TOPICAL PATCH TD SCH (10:58)
[2017-09-25] MEDS: PRENATAL VITAMINS W/ FOLIC ACID TABLET (FP) PO SCH (11:00)
--- NOTE | 2017-09-25 11:36 | PN ---
S CIWA - CIWA Score Nausea/Vomitin-Mild Nausea/No Vomiting Muscle Tremors: 4-Moderate,w/Arms Extend Anxiety: 3 Agitation: 3 Paroxysmal Sweats: 1-Minimal Palms Moist Orientation: 0-Oriented Tacttile Disturbances: 0-None Auditory Disturbances: 0-None Visual Disturbances: 0-None Headache: 0-None Present CIWA-Ar Total Score: 12 BHS Progress Note (SOAP) Subjective: cold sweat tremor anxiety irritable trouble sleep at night Objective: 09/25/17 11:35 Vital Signs Temperature 98.1 F 09/25/17 11:06 Pulse Rate 71 09/25/17 11:06 Respiratory Rate 18 09/25/17 11:06 Blood Pressure 123/77 09/25/17 11:06 O2 Sat by Pulse Oximetry (%) Laboratory Last Values WBC 6.5 K/mm3 (4.0-10.0) 09/24/17 07:55 RBC 4.02 M/mm3 (4.00-5.60) 09/24/17 07:55 Hgb 12.3 GM/dL (11.7-16.9) 09/24/17 07:55 Hct 36.2 % (35.4-49) 09/24/17 07:55 MCV 90.2 fl (80-96) 09/24/17 07:55 MCH 30.5 pg (25.7-33.7) 09/24/17 07:55 MCHC 33.9 g/dl (32.0-35.9) 09/24/17 07:55 RDW 13.7 % (11.9-15.9) 09/24/17 07:55 Plt Count 329 K/MM3 (134-434) 09/24/17 07:55 MPV 8.1 fl (7.5-11.1) 09/24/17 07:55 Sodium 141 mmol/L (136-145) 09/24/17 07:55 Potassium 3.8 mmol/L (3.5-5.1) 09/24/17 07:55 Chloride 107 mmol/L (98-107) 09/24/17 07:55 Carbon Dioxide 30 mmol/L (21-32) 09/24/17 07:55 Anion Gap 4 (8-16) L 09/24/17 07:55 BUN 16 mg/dL (7-18) 09/24/17 07:55 Creatinine 1.1 mg/dL (0.7-1.3) 09/24/17 07:55 Creat Clearance w eGFR > 60 (>60) 09/24/17 07:55 Random Glucose 95 mg/dL (74-106) 09/24/17 07:55 Calcium 8.5 mg/dL (8.5-10.1) 09/24/17 07:55 Total Bilirubin 0.2 mg/dL (0.2-1.0) D 09/24/17 07:55 AST 30 U/L (15-37) D 09/24/17 07:55 ALT 38 U/L (12-78) D 09/24/17 07:55 Alkaline Phosphatase 62 U/L (45-117) 09/24/17 07:55 Total Protein 6.5 g/dl (6.4-8.2) 09/24/17 07:55 Albumin 3.0 g/dl (3.4-5.0) L 09/24/17 07:55 Urine Color Dkyellow 09/23/17 22:50 Urine Appearance Turbid 09/23/17 22:50 Urine pH 5.0 (5.0-8.0) 09/23/17 22:50 Ur Specific [place] 1.032 (1.001-1.035) 09/23/17 22:50 Urine Protein 1+ (NEGATIVE) H 09/23/17 22:50 Urine Glucose (UA) Negative (NEGATIVE) 09/23/17 22:50 Urine Ketones Trace (NEGATIVE) H 09/23/17 22:50 Urine Blood Negative (NEGATIVE) 09/23/17 22:50 Urine Nitrite Negative (NEGATIVE) 09/23/17 22:50 Urine Bilirubin Negative (<2.0 mg/dL) 09/23/17 22:50 Urine Urobilinogen 4.0 e.u/dl mg/dL (0.2-1.0) 09/23/17 22:50 Ur Leukocyte Esterase Negative (NEGATIVE) 09/23/17 22:50 Urine WBC (Auto) 57 /hpf (3-5) 09/23/17 22:50 Urine RBC (Auto) 1 /hpf (0-3) 09/23/17 22:50 Ur Epithelial Cells Rare /HPF (FEW) 09/23/17 22:50 Urine Mucus Rare 09/23/17 22:50 RPR Titer Nonreactive (NONREACTIVE) 09/24/17 07:55 lab noted Assessment: 09/25/17 11:35 withdrawal sx Plan: continue detox
[2017-09-25] MEDS: chlordiazePOXIDE 5 MG CAPSULE PO SCH (22:12)
[2017-09-25] MEDS: traZODone HCL 100 MG TABLET (FP) PO SCH (22:12)
[2017-09-25] MEDS: THIAMINE HCL 100 MG TABLET (FP) PO SCH (22:12)
[2017-09-26] MEDS: DOCUSATE SODIUM 100 MG CAPSULE (FP) PO SCH ×3 (05:38→22:31)
[2017-09-26] MEDS: GABAPENTIN 300 MG CAPSULE (FP) PO SCH ×3 (05:38→22:31)
[2017-09-26] MEDS: chlordiazePOXIDE 5 MG CAPSULE PO SCH ×3 (05:38→16:34)
[2017-09-26] MEDS: ACETAMINOPHEN 325 MG TABLET (FP) PO PRN ×3 (05:58→17:10)
[2017-09-26] MEDS: NICOTINE 14 MG/24 HOURS TOPICAL PATCH TD SCH (10:51)
[2017-09-26] MEDS: ESCITALOPRAM OXALATE 20 MG TABLET (FP) PO SCH (10:51)
[2017-09-26] MEDS: DICLOFENAC SODIUM 75 MG TABLET.DR PO SCH ×2 (10:52→22:31)
[2017-09-26] MEDS: QUEtiapine FUMARATE 300 MG TABLET PO SCH ×2 (10:52→22:30)
[2017-09-26] MEDS: valACYclovir HCL 500 MG TABLET (FP) PO SCH (10:52)
[2017-09-26] MEDS: PRENATAL VITAMINS W/ FOLIC ACID TABLET (FP) PO SCH (10:52)
[2017-09-26] MEDS: hydrOXYzine PAMOATE 50 MG CAPSULE (FP) PO SCH ×2 (10:52→22:30)
--- NOTE | 2017-09-26 12:00 | PN ---
BHS Progress Note (SOAP) Subjective: feeling better no tremor less sweat hesitate to discuss aftercare Objective: 09/26/17 11:59 Vital Signs Temperature 98.4 F 09/26/17 09:59 Pulse Rate 111 H 09/26/17 09:59 Respiratory Rate 18 09/26/17 09:59 Blood Pressure 137/83 09/26/17 09:59 O2 Sat by Pulse Oximetry (%) Laboratory Last Values WBC 6.5 K/mm3 (4.0-10.0) 09/24/17 07:55 RBC 4.02 M/mm3 (4.00-5.60) 09/24/17 07:55 Hgb 12.3 GM/dL (11.7-16.9) 09/24/17 07:55 Hct 36.2 % (35.4-49) 09/24/17 07:55 MCV 90.2 fl (80-96) 09/24/17 07:55 MCH 30.5 pg (25.7-33.7) 09/24/17 07:55 MCHC 33.9 g/dl (32.0-35.9) 09/24/17 07:55 RDW 13.7 % (11.9-15.9) 09/24/17 07:55 Plt Count 329 K/MM3 (134-434) 09/24/17 07:55 MPV 8.1 fl (7.5-11.1) 09/24/17 07:55 Sodium 141 mmol/L (136-145) 09/24/17 07:55 Potassium 3.8 mmol/L (3.5-5.1) 09/24/17 07:55 Chloride 107 mmol/L (98-107) 09/24/17 07:55 Carbon Dioxide 30 mmol/L (21-32) 09/24/17 07:55 Anion Gap 4 (8-16) L 09/24/17 07:55 BUN 16 mg/dL (7-18) 09/24/17 07:55 Creatinine 1.1 mg/dL (0.7-1.3) 09/24/17 07:55 Creat Clearance w eGFR > 60 (>60) 09/24/17 07:55 Random Glucose 95 mg/dL (74-106) 09/24/17 07:55 Calcium 8.5 mg/dL (8.5-10.1) 09/24/17 07:55 Total Bilirubin 0.2 mg/dL (0.2-1.0) D 09/24/17 07:55 AST 30 U/L (15-37) D 09/24/17 07:55 ALT 38 U/L (12-78) D 09/24/17 07:55 Alkaline Phosphatase 62 U/L (45-117) 09/24/17 07:55 Total Protein 6.5 g/dl (6.4-8.2) 09/24/17 07:55 Albumin 3.0 g/dl (3.4-5.0) L 09/24/17 07:55 Urine Color Dkyellow 09/23/17 22:50 Urine Appearance Turbid 09/23/17 22:50 Urine pH 5.0 (5.0-8.0) 09/23/17 22:50 Ur Specific [place] 1.032 (1.001-1.035) 09/23/17 22:50 Urine Protein 1+ (NEGATIVE) H 09/23/17 22:50 Urine Glucose (UA) Negative (NEGATIVE) 09/23/17 22:50 Urine Ketones Trace (NEGATIVE) H 09/23/17 22:50 Urine Blood Negative (NEGATIVE) 09/23/17 22:50 Urine Nitrite Negative (NEGATIVE) 09/23/17 22:50 Urine Bilirubin Negative (<2.0 mg/dL) 09/23/17 22:50 Urine Urobilinogen 4.0 e.u/dl mg/dL (0.2-1.0) 09/23/17 22:50 Ur Leukocyte Esterase Negative (NEGATIVE) 09/23/17 22:50 Urine WBC (Auto) 57 /hpf (3-5) 09/23/17 22:50 Urine RBC (Auto) 1 /hpf (0-3) 09/23/17 22:50 Ur Epithelial Cells Rare /HPF (FEW) 09/23/17 22:50 Urine Mucus Rare 09/23/17 22:50 RPR Titer Nonreactive (NONREACTIVE) 09/24/17 07:55 lab noted Assessment: 09/26/17 11:59 mild withdrawal sx Plan: medically supervised detox
--- NOTE | 2017-09-26 19:08 | PN ---
[facility] Progress Note Note: Notified by RN patient has temperature of 101.8. Given Tylenol as per PRN order. Vital Signs Temperature 99.7 F H 09/26/17 13:30 Pulse Rate 87 09/26/17 13:30 Respiratory Rate 20 09/26/17 13:30 Blood Pressure 131/85 09/26/17 13:30 O2 Sat by Pulse Oximetry (%) Laboratory Tests 09/23/17 09/24/17 09/24/17 22:50 07:55 07:55 WBC 6.5 RBC 4.02 Hgb 12.3 Hct 36.2 MCV 90.2 MCH 30.5 MCHC 33.9 RDW 13.7 Plt Count 329 MPV 8.1 Sodium 141 Potassium 3.8 Chloride 107 Carbon Dioxide 30 Anion Gap 4 L BUN 16 Creatinine 1.1 Creat Clearance w eGFR > 60 Random Glucose 95 Calcium 8.5 Total Bilirubin 0.2 D AST 30 D ALT 38 D Alkaline Phosphatase 62 Total Protein 6.5 Albumin 3.0 L Urine Color Dkyellow Urine Appearance Turbid Urine pH 5.0 Ur Specific [place] 1.032 Urine Protein 1+ H Urine Glucose (UA) Negative Urine Ketones Trace H Urine Blood Negative Urine Nitrite Negative Urine Bilirubin Negative Urine Urobilinogen 4.0 e.u/dl Ur Leukocyte Esterase Negative Urine WBC (Auto) 57 Urine RBC (Auto) 1 Ur Epithelial Cells Rare Urine Mucus Rare RPR Titer 09/24/17 07:55 WBC RBC Hgb Hct MCV MCH MCHC RDW Plt Count MPV Sodium Potassium Chloride Carbon Dioxide Anion Gap BUN Creatinine Creat Clearance w eGFR Random Glucose Calcium Total Bilirubin AST ALT Alkaline Phosphatase Total Protein Albumin Urine Color Urine Appearance Urine pH Ur Specific [place] Urine Protein Urine Glucose (UA) Urine Ketones Urine Blood Urine Nitrite Urine Bilirubin Urine Urobilinogen Ur Leukocyte Esterase Urine WBC (Auto) Urine RBC (Auto) Ur Epithelial Cells Urine Mucus RPR Titer Nonreactive Obj: General: alert and oriented x 3. Evaluated while in bed. Skin: warm and dry and intact. ENT: +PEERLA, Tonsils inflammed, +2. No visible exudate Car: S1S2 Resp: CTA BL Ext: no edema A/P: Fever Tonsillitis Will start azithromycin 250mg daily x 7 days increase oral fluids check cbc, cmp monitor clinically.
[2017-09-26] MEDS: AZITHROMYCIN 250 MG TABLET PO SCH (20:28)
[2017-09-26] MEDS ORDERED: AZITHROMYCIN 250 MG TABLET PO ONE (21:37)
[2017-09-26] MEDS: THIAMINE HCL 100 MG TABLET (FP) PO SCH (22:30)
[2017-09-26] MEDS: traZODone HCL 100 MG TABLET (FP) PO SCH (22:31)
[2017-09-26] MEDS: chlordiazePOXIDE HCL 10 MG CAPSULE PO SCH (22:31)
--- NOTE | 2017-09-26 23:35 | PN ---
S Progress Note Note: Vital Signs Temperature 102.4 F H 09/26/17 22:23 Pulse Rate 103 H 09/26/17 22:23 Respiratory Rate 18 09/26/17 22:23 Blood Pressure 139/85 09/26/17 22:23 O2 Sat by Pulse Oximetry (%) throat culture ordered patient refuse order d/c continue to monitor
[2017-09-27] MEDS: ACETAMINOPHEN 325 MG TABLET (FP) PO PRN ×2 (03:51→14:57)
[2017-09-27] MEDS: chlordiazePOXIDE HCL 10 MG CAPSULE PO SCH ×3 (06:54→17:14)
[2017-09-27] MEDS: GABAPENTIN 300 MG CAPSULE (FP) PO SCH ×3 (06:54→22:44)
[2017-09-27] MEDS: DOCUSATE SODIUM 100 MG CAPSULE (FP) PO SCH ×3 (06:54→22:39)
--- NOTE | 2017-09-27 08:40 | DS ---
[facility] Detox Discharge Summary Admission Date: 09/23/17 - Physical Exam Results Vital Signs: Vital Signs Temperature 99.1 F 09/27/17 07:43 Pulse Rate 82 09/27/17 07:43 Respiratory Rate 20 09/27/17 07:43 Blood Pressure 128/89 09/27/17 07:43 O2 Sat by Pulse Oximetry (%) - Medication Discharge Medications: Ambulatory Orders Acetaminophen [Tylenol Arthritis] 650 mg PO DAILY 07/19/17 Diclofenac Sodium [Diclofenac Sodium ER] 50 mg PO BID 07/19/17 Valacyclovir HCl [Valtrex -] 500 mg PO DAILY 07/19/17 Escitalopram Oxalate [Lexapro -] 20 mg PO DAILY #30 tablet 09/24/17 Quetiapine Fumarate [Seroquel -] 300 mg PO BID #60 tablet 09/24/17 hydrOXYzine PAMOATE [Vistaril -] 50 mg PO BID@0900,2100 #60 capsule 09/24/17 traZODone HCL [Desyrel -] 100 mg PO HS #30 tablet 09/24/17 Gabapentin [Neurontin -] 300 mg PO TID #90 capsule 09/26/17
[2017-09-27] MEDS: QUEtiapine FUMARATE 300 MG TABLET PO SCH ×2 (10:31→22:44)
[2017-09-27] MEDS: PRENATAL VITAMINS W/ FOLIC ACID TABLET (FP) PO SCH (10:32)
[2017-09-27] MEDS: AZITHROMYCIN 250 MG TABLET PO SCH (10:32)
[2017-09-27] MEDS: valACYclovir HCL 500 MG TABLET (FP) PO SCH (10:32)
[2017-09-27] MEDS: ESCITALOPRAM OXALATE 20 MG TABLET (FP) PO SCH (10:32)
[2017-09-27] MEDS: hydrOXYzine PAMOATE 50 MG CAPSULE (FP) PO SCH ×2 (10:33→22:44)
[2017-09-27] MEDS: NICOTINE 14 MG/24 HOURS TOPICAL PATCH TD SCH (10:33)
[2017-09-27] MEDS: DICLOFENAC SODIUM 75 MG TABLET.DR PO SCH ×2 (10:33→22:44)
--- NOTE | 2017-09-27 12:29 | PN ---
[facility] Progress Note (SOAP) Subjective: 47 years old male admitted 09/23/17 for alcohol withdrawal sx developed fever sore throat trouble swallowing solid food fatigue weakness with alcohol withdrawal sx case discussed with counselor extend detox one more day for safety measure Objective: 09/27/17 12:29 Vital Signs Temperature 98 F 09/27/17 10:39 Pulse Rate 86 09/27/17 10:39 Respiratory Rate 20 09/27/17 10:39 Blood Pressure 152/95 09/27/17 10:39 O2 Sat by Pulse Oximetry (%) Laboratory Last Values WBC 6.5 K/mm3 (4.0-10.0) 09/24/17 07:55 RBC 4.02 M/mm3 (4.00-5.60) 09/24/17 07:55 Hgb 12.3 GM/dL (11.7-16.9) 09/24/17 07:55 Hct 36.2 % (35.4-49) 09/24/17 07:55 MCV 90.2 fl (80-96) 09/24/17 07:55 MCH 30.5 pg (25.7-33.7) 09/24/17 07:55 MCHC 33.9 g/dl (32.0-35.9) 09/24/17 07:55 RDW 13.7 % (11.9-15.9) 09/24/17 07:55 Plt Count 329 K/MM3 (134-434) 09/24/17 07:55 MPV 8.1 fl (7.5-11.1) 09/24/17 07:55 Sodium 141 mmol/L (136-145) 09/24/17 07:55 Potassium 3.8 mmol/L (3.5-5.1) 09/24/17 07:55 Chloride 107 mmol/L (98-107) 09/24/17 07:55 Carbon Dioxide 30 mmol/L (21-32) 09/24/17 07:55 Anion Gap 4 (8-16) L 09/24/17 07:55 BUN 16 mg/dL (7-18) 09/24/17 07:55 Creatinine 1.1 mg/dL (0.7-1.3) 09/24/17 07:55 Creat Clearance w eGFR > 60 (>60) 09/24/17 07:55 Random Glucose 95 mg/dL (74-106) 09/24/17 07:55 Calcium 8.5 mg/dL (8.5-10.1) 09/24/17 07:55 Total Bilirubin 0.2 mg/dL (0.2-1.0) D 09/24/17 07:55 AST 30 U/L (15-37) D 09/24/17 07:55 ALT 38 U/L (12-78) D 09/24/17 07:55 Alkaline Phosphatase 62 U/L (45-117) 09/24/17 07:55 Total Protein 6.5 g/dl (6.4-8.2) 09/24/17 07:55 Albumin 3.0 g/dl (3.4-5.0) L 09/24/17 07:55 Urine Color Dkyellow 09/23/17 22:50 Urine Appearance Turbid 09/23/17 22:50 Urine pH 5.0 (5.0-8.0) 09/23/17 22:50 Ur Specific [place] 1.032 (1.001-1.035) 09/23/17 22:50 Urine Protein 1+ (NEGATIVE) H 09/23/17 22:50 Urine Glucose (UA) Negative (NEGATIVE) 09/23/17 22:50 Urine Ketones Trace (NEGATIVE) H 09/23/17 22:50 Urine Blood Negative (NEGATIVE) 09/23/17 22:50 Urine Nitrite Negative (NEGATIVE) 09/23/17 22:50 Urine Bilirubin Negative (<2.0 mg/dL) 09/23/17 22:50 Urine Urobilinogen 4.0 e.u/dl mg/dL (0.2-1.0) 09/23/17 22:50 Ur Leukocyte Esterase Negative (NEGATIVE) 09/23/17 22:50 Urine WBC (Auto) 57 /hpf (3-5) 09/23/17 22:50 Urine RBC (Auto) 1 /hpf (0-3) 09/23/17 22:50 Ur Epithelial Cells Rare /HPF (FEW) 09/23/17 22:50 Urine Mucus Rare 09/23/17 22:50 RPR Titer Nonreactive (NONREACTIVE) 09/24/17 07:55 lab noted Assessment: 09/27/17 12:30 mild with drawal sx sore throat fever Plan: medically supervised detox increase oral fluid zithromycin
[2017-09-27 13:54] LABS: BASO % 0.4 % (0-2.0); EOS % 0.2 % (0-4.5); HEMATOCRIT 41.8 % (35.4-49); HEMOGLOBIN 13.8 GM/dL (11.7-16.9); LYMPH % 10.4 % (8-40); MCH 30.3 pg (25.7-33.7); MEAN CELL VOLUME 91.9 fl (80-96); MEAN PLT VOLUME 8.9 fl (7.5-11.1); MONO % 9.1 % (3.8-10.2); NEUT % 79.9 % (42.8-82.8); PLATELET COUNT 327 K/MM3 (134-434); RBC 4.55 M/mm3 (4.00-5.60); RDW 14.1 % (11.9-15.9); WHITE BLOOD COUNT 17.3 K/mm3 (4.0-10.0)
[2017-09-27 14:06] LABS: CHLORIDE 99 mmol/L (98-107); POTASSIUM 4.1 mmol/L (3.5-5.1); SODIUM 136 mmol/L (136-145)
[2017-09-27 14:22] LABS: ANION GAP 5 (8-16); BLOOD UREA NITROGEN 8 mg/dL (7-18); CALCIUM 9.4 mg/dL (8.5-10.1); CO2 32 mmol/L (21-32); CREATININE 1.1 mg/dL (0.7-1.3); GLUCOSE,RANDOM 82 mg/dL (74-106)
[2017-09-27] MEDS ORDERED: SULFAMETHOXAZOLE/TRIMETHOPRIM 800MG/160MG D.S. TABLET PO ONE (15:45)
[2017-09-27] MEDS ORDERED: SULFAMETHOXAZOLE/TRIMETHOPRIM 800MG/160MG D.S. TABLET PO SCH (22:00)
[2017-09-27] MEDS: THIAMINE HCL 100 MG TABLET (FP) PO SCH (22:39)
[2017-09-27] MEDS: SULFAMETHOXAZOLE/TRIMETHOPRIM 800MG/160MG D.S. TABLET PO SCH (22:39)
[2017-09-27] MEDS: traZODone HCL 100 MG TABLET (FP) PO SCH (22:43)
[2017-09-28] MEDS: GABAPENTIN 300 MG CAPSULE (FP) PO SCH (05:42)
[2017-09-28] MEDS: DOCUSATE SODIUM 100 MG CAPSULE (FP) PO SCH (05:42)
[2017-09-28 09:12] VITALS: BP 130/86; PULSE 96; TEMP 98.1
--- NOTE | 2017-09-28 09:38 | DS ---
[facility] Detox Discharge Summary Admission Date: 09/23/17 Discharge Date: 09/28/17 - History Present History: Alcohol Dependence Additional Comments: 47 years old male admitted 09/23/17 for alcohol withdrawal sx completed alcohol detox regimen tolerated well denies alcohol withdrawal sx tolerated food and fluid well temperature within normal range 96. - 98. patient acknowledged continue bactrim ds and follow up with [facility] services for addiction related issues - Physical Exam Results Vital Signs: Vital Signs Temperature 98.1 F 09/28/17 09:11 Pulse Rate 96 H 09/28/17 09:11 Respiratory Rate 18 09/28/17 09:11 Blood Pressure 130/86 09/28/17 09:11 O2 Sat by Pulse Oximetry (%) Pertinent Admission Physical Exam Findings: alcohol withdrawal sx Vital Signs Temperature 98.1 F 09/28/17 09:11 Pulse Rate 96 H 09/28/17 09:11 Respiratory Rate 18 09/28/17 09:11 Blood Pressure 130/86 09/28/17 09:11 O2 Sat by Pulse Oximetry (%) Laboratory Last Values WBC 17.3 K/mm3 (4.0-10.0) H D 09/27/17 08:30 RBC 4.55 M/mm3 (4.00-5.60) 09/27/17 08:30 Hgb 13.8 GM/dL (11.7-16.9) D 09/27/17 08:30 Hct 41.8 % (35.4-49) D 09/27/17 08:30 MCV 91.9 fl (80-96) 09/27/17 08:30 MCH 30.3 pg (25.7-33.7) 09/27/17 08:30 MCHC 33.0 g/dl (32.0-35.9) 09/27/17 08:30 RDW 14.1 % (11.9-15.9) 09/27/17 08:30 Plt Count 327 K/MM3 (134-434) 09/27/17 08:30 MPV 8.9 fl (7.5-11.1) 09/27/17 08:30 Neutrophils % 79.9 % (42.8-82.8) 09/27/17 08:30 Lymphocytes % 10.4 % (8-40) 09/27/17 08:30 Monocytes % 9.1 % (3.8-10.2) 09/27/17 08:30 Eosinophils % 0.2 % (0-4.5) 09/27/17 08:30 Basophils % 0.4 % (0-2.0) 09/27/17 08:30 Nucleated RBC % 0 % (0-0) 09/27/17 08:30 Sodium 136 mmol/L (136-145) 09/27/17 08:30 Potassium 4.1 mmol/L (3.5-5.1) 09/27/17 08:30 Chloride 99 mmol/L (98-107) 09/27/17 08:30 Carbon Dioxide 32 mmol/L (21-32) 09/27/17 08:30 Anion Gap 5 (8-16) L 09/27/17 08:30 BUN 8 mg/dL (7-18) D 09/27/17 08:30 Creatinine 1.1 mg/dL (0.7-1.3) 09/27/17 08:30 Creat Clearance w eGFR > 60 (>60) 09/24/17 07:55 Random Glucose 82 mg/dL (74-106) 09/27/17 08:30 Calcium 9.4 mg/dL (8.5-10.1) 09/27/17 08:30 Total Bilirubin 0.2 mg/dL (0.2-1.0) D 09/24/17 07:55 AST 30 U/L (15-37) D 09/24/17 07:55 ALT 38 U/L (12-78) D 09/24/17 07:55 Alkaline Phosphatase 62 U/L (45-117) 09/24/17 07:55 Total Protein 6.5 g/dl (6.4-8.2) 09/24/17 07:55 Albumin 3.0 g/dl (3.4-5.0) L 09/24/17 07:55 Urine Color Dkyellow 09/23/17 22:50 Urine Appearance Turbid 09/23/17 22:50 Urine pH 5.0 (5.0-8.0) 09/23/17 22:50 Ur Specific [place] 1.032 (1.001-1.035) 09/23/17 22:50 Urine Protein 1+ (NEGATIVE) H 09/23/17 22:50 Urine Glucose (UA) Negative (NEGATIVE) 09/23/17 22:50 Urine Ketones Trace (NEGATIVE) H 09/23/17 22:50 Urine Blood Negative (NEGATIVE) 09/23/17 22:50 Urine Nitrite Negative (NEGATIVE) 09/23/17 22:50 Urine Bilirubin Negative (<2.0 mg/dL) 09/23/17 22:50 Urine Urobilinogen 4.0 e.u/dl mg/dL (0.2-1.0) 09/23/17 22:50 Ur Leukocyte Esterase Negative (NEGATIVE) 09/23/17 22:50 Urine WBC (Auto) 57 /hpf (3-5) 09/23/17 22:50 Urine RBC (Auto) 1 /hpf (0-3) 09/23/17 22:50 Ur Epithelial Cells Rare /HPF (FEW) 09/23/17 22:50 Urine Mucus Rare 09/23/17 22:50 RPR Titer Nonreactive (NONREACTIVE) 09/24/17 07:55 lab noted - Treatment Hospital Course: Detox Protocol Followed, Detoxed Safely, Responded well, Discharged Condition Good, Rehab Referral Accepted Patient has Accepted a Rehab Referral to: [facility] - Medication Discharge Medications: Ambulatory Orders Acetaminophen [Tylenol Arthritis] 650 mg PO DAILY 07/19/17 Diclofenac Sodium [Diclofenac Sodium ER] 50 mg PO BID 07/19/17 Valacyclovir HCl [Valtrex -] 500 mg PO DAILY 07/19/17 Escitalopram Oxalate [Lexapro -] 20 mg PO DAILY #30 tablet 09/24/17 Quetiapine Fumarate [Seroquel -] 300 mg PO BID #60 tablet 09/24/17 hydrOXYzine PAMOATE [Vistaril -] 50 mg PO BID@0900,2100 #60 capsule 09/24/17 traZODone HCL [Desyrel -] 100 mg PO HS #30 tablet 09/24/17 Gabapentin [Neurontin -] 300 mg PO TID #90 capsule 09/26/17 Sulfamethoxazole/Trimethoprim [Bactrim DS -] 1 each PO BID #10 tablet 09/28/17 - Diagnosis (1) Neuropathy Current Visit: Yes Status: Chronic (2) Alcohol dependence with uncomplicated withdrawal Current Visit: Yes Status: Acute (3) Nicotine dependence Current Visit: Yes Status: Acute Qualifiers: Nicotine product type: cigarettes Substance use status: in withdrawal Qualified Code(s): F17.213 - Nicotine dependence, cigarettes, with withdrawal - AMA Did Patient Leave Against Medical Advice: No
[2017-09-28 10:44] LABS: URINE APPEARANCE CLEAR; URINE BILIRUBIN NEGATIVE (<2.0 mg/dL); URINE COLOR YELLOW; URINE GLUCOSE (UA) NEGATIVE (NEGATIVE); URINE KETONE NEGATIVE (NEGATIVE); URINE LEUK ESTERASE NEGATIVE (NEGATIVE); URINE NITRITE NEGATIVE (NEGATIVE); URINE PROTEIN NEGATIVE (NEGATIVE); URINE UROBILINOGEN NEGATIVE mg/dL (0.2-1.0)
[2017-09-28] MEDS: SULFAMETHOXAZOLE/TRIMETHOPRIM 800MG/160MG D.S. TABLET PO SCH (11:00)
[2017-09-28] MEDS: ESCITALOPRAM OXALATE 20 MG TABLET (FP) PO SCH (11:00)
[2017-09-28] MEDS: NICOTINE 14 MG/24 HOURS TOPICAL PATCH TD SCH (11:00)
[2017-09-28] MEDS: PRENATAL VITAMINS W/ FOLIC ACID TABLET (FP) PO SCH (11:00)
[2017-09-28] MEDS: valACYclovir HCL 500 MG TABLET (FP) PO SCH (11:01)
[2017-09-28] MEDS: QUEtiapine FUMARATE 300 MG TABLET PO SCH (11:01)
[2017-09-28] MEDS: DICLOFENAC SODIUM 75 MG TABLET.DR PO SCH (11:01)
[2017-09-28] MEDS: hydrOXYzine PAMOATE 50 MG CAPSULE (FP) PO SCH (11:01)
--- NOTE | 2017-09-30 22:50 | EKG ---
Test Reason : Blood Pressure : / mmHG Vent. Rate : 084 BPM Atrial Rate : 084 BPM P-R Int : 134 ms QRS Dur : 094 ms QT Int : 386 ms P-R-T Axes : 053 050 053 degrees QTc Int : 456 ms NORMAL SINUS RHYTHM NORMAL ECG WHEN COMPARED WITH ECG OF 23-SEP-2017 22:03, NO SIGNIFICANT CHANGE WAS FOUND Confirmed by RADHA ORANTES MD ([id number]) on 09/30/2017 10:49:27 PM Referred By: Confirmed By:RADHA ORANTES MD
== END 2017-09-28 09:51 | disposition home or self-care (01) | DRG 775 ==
LOC: YASAS 15:57 → Y6N 20:09
PROVIDERS: ADMIT Internal Medicine; ATTEND Internal Medicine
PROC: HZ2ZZZZ Detoxification Services for Substance Abuse Treatment (ICD-10-PCS; principal; 2017-09-23)
DX: F13.230 Sedative, hypnotic or anxiolytic dependence with withdrawal, uncomplicated (principal); F10.230 Alcohol dependence with withdrawal, uncomplicated; F17.213 Nicotine dependence, cigarettes, with withdrawal; F43.10 Post-traumatic stress disorder, unspecified; F31.81 Bipolar II disorder; G62.9 Polyneuropathy, unspecified; B00.89 Other herpesviral infection; R50.9 Fever, unspecified
CPT/HCPCS: 36415; 80048; 80053; 81003; 81015; 85025; 85027; 86593; 93005; 93010

== ENCOUNTER 2018-04-27 09:29 | Inpatient (IN) | payer OTHER ==
[2018-04-27 10:44] VITALS: BMI 30.4
--- NOTE | 2018-04-27 11:53 | HP ---
CIWA Score Nausea/Vomitin Muscle Tremors: 3 Anxiety: 3 Agitation: 0-Normal Activity Paroxysmal Sweats: 1-Minimal Palms Moist Orientation: 0-Oriented Tacttile Disturbances: 1-Very Mild Itch/Numbness Auditory Disturbances: 1-Very Mild Visual Disturbances: 0-None Headache: 2-Mild CIWA-Ar Total Score: 13 - Admission Criteria [facility] Guidelines: Admission for Medically Managed Detox: Requires at least one of the followin. CIWA greater than 12 2. Seizures within the past 24 hours 3. Delirium tremens within the past 24 hours 4. Hallucinations within the past 24 hours 5. Acute intervention needed for co occurring medical disorder 6. Acute intervention needed for co occurring psychiatric disorder 7. Severe withdrawal that cannot be handled at a lower level of care (continued vomiting, continued diarrhea, abnormal vital signs) requiring intravenous medication and/or fluids 8. Patient presents the following: CIWA greater than 12 Admission Criteria Met: Admission criteria met Admission ROS S - [facility] Chief Complaint: I want to be clean in the new year, I want custodial after this Allergies/Adverse Reactions: Allergies Allergy/AdvReac Type Severity Reaction Status Date / Time Penicillins Allergy Severe Swelling Verified 04/27/18 12:51 Pork/Porcine Containing Allergy Intermediate Hives Verified 04/27/18 12:51 Products History of Present Illness: 48 yo gentleman here for detox from alcohol - also using benzodiazepines - this is one of multiple admissions for treatment - last here in November 2017, last time in detox was a month ago in [facility]. He has a history of black outs, no seizures. States he wants to get into a custodial program after detox like [facility]. Exam Limitations: Clinical Condition - Ebola screening Have you traveled outside of the country in the last 21 days: No (N) Have you had contact with anyone from an Ebola affected area: No Have you been sick,other than usual withdrawal symptoms: No Do you have a fever: No - Review of Systems Constitutional: Chills, Loss of Appetite, Night Sweats, Changes in sleep, Weakness EENT: reports: No Symptoms Reported Respiratory: reports: No Symptoms reported Cardiac: reports: No Symptoms Reported GI: reports: Diarrhea, Poor Fluid Intake, Indigestion, Abdominal cramping : reports: Frequency Musculoskeletal: reports: Back Pain Integumentary: reports: Dryness Neuro: reports: Headache, Tremors Endocrine: reports: No Symptoms Reported Hematology: reports: No Symptoms Reported Psychiatric: reports: Judgement Intact, Mood/Affect Appropiate, Orientated x3, Anxious Other Systems: Reviewed and Negative Patient History - Patient Medical History Hx Anemia: No Hx Asthma: No Hx Chronic Obstructive Pulmonary Disease (COPD): No Hx Cancer: No Hx Cardiac Disorders: No Hx Congestive Heart Failure: No Hx Hypertension: No Hx Hypercholesterolemia: No Hx Pacemaker: No HX Cerebrovascular Accident: Yes (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 - no residual) Hx Seizures: No Hx Dementia: No Hx Diabetes: No Hx Gastrointestinal Disorders: No Hx Liver Disease: No Hx Genitourinary Disorders: No Hx Sexually Transmitted Disorders: Yes (hx genital herpes) Hx Renal Disease (ESRD): No Hx Thyroid Disease: No Hx Human Immunodeficiency Virus (HIV): No (Last tested october 2017, uses Truvada for PrEP) Hx Hepatitis C: No Hx Depression: Yes (sees psych, never hospitalized Seroquel) Hx Suicide Attempt: No Hx Bipolar Disorder: Yes (Trazodone, Vistaril, Lexapro) Hx Schizophrenia: No Other Medical History: back pain - Patient Surgical History Past Surgical History: No Hx Neurologic Surgery: No Hx Cataract Extraction: No Hx Cardiac Surgery: No Hx Lung Surgery: No Hx Breast Surgery: No Hx Breast Biopsy: No Hx Abdominal Surgery: No Hx Appendectomy: No Hx Cholecystectomy: No Hx Genitourinary Surgery: No Hx Section: No Hx Orthopedic Surgery: No Anesthesia Reaction: No - PPD History Previous Implant?: Yes Documented Results: Negative w/proof Implanted On Prior [facility] Admission?: Yes Date: 07/21/17 Results: 0 mm PPD to be Administered?: No - Reproductive History Patient is a Female of Child Bearing Age (11 -55 yrs old): No (male) - Smoking Cessation Smoking history: Current every day smoker Have you smoked in the past 12 months: Yes Aproximately how many cigarettes per day: 5 Hx Chewing Tobacco Use: No Initiated information on smoking cessation: Yes 'Breaking Loose' booklet given: 04/27/18 (give on floor) - Substance & Tx. History Hx Alcohol Use: Yes Hx Substance Use: Yes Substance Use Type: Alcohol, Cocaine, Tranquilizers Hx Substance Use Treatment: Yes (detox, rehab) - Substances Abused alcohol Route: Oral Frequency: Daily Amount used: 5 forty oz beer; 1/2 pint rum Age of first use: 12 Date of Last Use: 04/26/18 xanax Route: Oral Frequency: 3-6 times per week Amount used: six mg (three times per week) Age of first use: 32 Date of Last Use: 04/24/18 cocaine Route: Smoking Frequency: Daily Amount used: $100 Age of first use: 18 Date of Last Use: 04/26/18 Family Disease History - Family Disease History Family Disease History: Diabetes: Mother (alive, HTN and DM ), Brother (four - living - one with dm), Other: Father (alive, HTN , etoh), Mother, Brother, Sister (eight - living), Son (seven), Daughter (five) Admission Physical Exam [facility] - Vital Signs Vital Signs: Vital Signs - 24 hr 04/27/18 10:35 Temperature 97.5 F L Pulse Rate 82 Respiratory 20 Rate Blood Pressure 137/76 - Physical General Appearance: Yes: Nourished, Appropriately Dressed, Moderate Distress, Tremorous, Irritable, Anxious HEENTM: Yes: Hearing grossly Normal, Normocephalic, Normal Voice, Pharynx Normal Respiratory: Yes: Normal Breath Sounds, No Respiratory Distress Neck: Yes: No masses,lesions,Nodules Breast: Yes: Breast Exam Deferred Cardiology: Yes: Regular Rhythm, Regular Rate Abdominal: Yes: Soft Genitourinary: Yes: Frequency Back: Yes: Normal Inspection Musculoskeletal: Yes: full range of Motion, Gait Steady, Back pain Extremities: Yes: Normal Inspection, Non-Tender Neurological: Yes: Fully Oriented, Normal Mood/Affect, Normal Response Integumentary: Yes: Normal Color, Dry, Warm Lymphatic: Yes: Within Normal Limits - Diagnostic (1) Alcohol dependence with uncomplicated withdrawal Current Visit: Yes Status: Acute (2) Cocaine dependence Current Visit: Yes Status: Acute Qualifiers: Substance use status: uncomplicated Qualified Code(s): F14.20 - Cocaine dependence, uncomplicated (3) Sedative, hypnotic or anxiolytic dependence with withdrawal, uncomplicated Current Visit: Yes Status: Chronic (4) Renal insufficiency Current Visit: Yes Status: Chronic (5) Nicotine dependence Current Visit: Yes Status: Chronic Qualifiers: Nicotine product type: cigarettes Substance use status: in withdrawal Qualified Code(s): F17.213 - Nicotine dependence, cigarettes, with withdrawal (6) Chronic back pain Current Visit: Yes Status: Chronic Qualifiers: Back pain location: low back pain Back pain laterality: midline Sciatica presence: without sciatica Qualified Code(s): M54.5 - Low back pain; G89.29 - Other chronic pain (7) Herpes Current Visit: Yes Status: Chronic (8) Old cerebrovascular accident (CVA) without late effect Current Visit: Yes Status: Resolved Cleared for Admission [facility] - Detox or Rehab [facility] Level of Care: Medically Managed Detox Regimen/Protocol: Librium [facility] Breath Alcohol Content Breath Alcohol Content: 0 Urine Drug Screen - Results Drug Screen Negative: No Urine Drug Screen Results: [place]-Cocaine, BZO-Benzodiazepines
[2018-04-27] MEDS ORDERED: MAGNESIUM HYDROX 2400MG/30ML ORAL SUSPENSION 30 ML CUP PO PRN (12:02)
[2018-04-27] MEDS ORDERED: IBUPROFEN 400 MG TABLET (FP) PO PRN (12:02)
[2018-04-27] MEDS ORDERED: NICOTINE POLACRILEX 4 MG GUM BUC PRN (12:02)
[2018-04-27] MEDS ORDERED: MENTHOL/PHENOL 1 EACH UD MM PRN (12:02)
[2018-04-27] MEDS ORDERED: guaiFENesin/D-METHORPHAN HB 10 ML UNIT-DOSE CUPS PO PRN (12:02)
[2018-04-27] MEDS ORDERED: MAG HYDROX/AL HYDROX/SIMETH 30 ML UNIT-DOSE CUP PO PRN (12:02)
[2018-04-27] MEDS ORDERED: P-EPHED 60MG/TRIPROLIDI 2.5MG TABLET PO PRN (12:02)
[2018-04-27] MEDS ORDERED: LOPERAMIDE HCL 2 MG CAPSULE PO PRN (12:02)
[2018-04-27] MEDS ORDERED: MAGNESIUM CITRATE 300 ML BOTTLE PO PRN (12:02)
[2018-04-27] MEDS ORDERED: chlordiazePOXIDE HCL 25 MG CAPSULE PO PRN (12:02)
[2018-04-27] MEDS: ACETAMINOPHEN 325 MG TABLET (FP) PO PRN (13:52)
[2018-04-27] MEDS: LIDOCAINE 5% TOPICAL PATCH TP SCH (14:05)
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
[2018-04-27] MEDS: chlordiazePOXIDE HCL 25 MG CAPSULE PO SCH ×2 (17:24→22:21)
[2018-04-27] MEDS ORDERED: LIDOCAINE PATCH REMOVAL MC SCH (22:00)
[2018-04-27] MEDS ORDERED: MELATONIN 5 MG TABLETS PO PRN (22:00)
[2018-04-27] MEDS ORDERED: THIAMINE HCL 100 MG TABLET (FP) PO SCH (22:00)
[2018-04-27] MEDS ORDERED: QUEtiapine FUMARATE 200 MG TABLET PO SCH (22:05)
[2018-04-28] MEDS: chlordiazePOXIDE HCL 25 MG CAPSULE PO SCH ×2 (05:30→10:08)
[2018-04-28] MEDS ORDERED: ESCITALOPRAM OXALATE 20 MG TABLET (FP) PO SCH (10:00)
[2018-04-28] MEDS ORDERED: PRENATAL VITAMINS W/ FOLIC ACID TABLET (FP) PO SCH (10:00)
[2018-04-28] MEDS ORDERED: valACYclovir HCL 500 MG TABLET (FP) PO SCH (10:00)
[2018-04-28] MEDS ORDERED: EMTRICITABINE 200MG/TENOFOVIR 300MG PO SCH (10:00)
[2018-04-28] MEDS: ACETAMINOPHEN 325 MG TABLET (FP) PO PRN (10:13)
[2018-04-28 10:26] LABS: HEMATOCRIT 36.6 % (35.4-49); MCH 29.3 pg (25.7-33.7); MCHC 32.7 g/dl (32.0-35.9); MEAN CELL VOLUME 89.5 fl (80-96); MEAN PLT VOLUME 8.3 fl (7.5-11.1); PLATELET COUNT 253 K/MM3 (134-434); RBC 4.09 M/mm3 (4.00-5.60); RDW 14.7 % (11.9-15.9); WHITE BLOOD COUNT 5.8 K/mm3 (4.0-10.0)
[2018-04-28 10:38] LABS: ALBUMIN 3.1 g/dl (3.4-5.0); ALK PHOS 75 U/L (45-117); ANION GAP 6 MMOL/L (8-16); BILIRUBIN,TOTAL 0.2 mg/dL (0.2-1); BLOOD UREA NITROGEN 14 mg/dL (7-18); CALCIUM 8.3 mg/dL (8.5-10.1); CHLORIDE 107 mmol/L (98-107); CO2 27 mmol/L (21-32); CREATININE 1.1 mg/dL (0.55-1.3); GLUCOSE,RANDOM 88 mg/dL (74-106); SGOT/AST 13 U/L (15-37); SGPT/ALT 21 U/L (13-61); SODIUM 140 mmol/L (136-145); TOT PROT 6.9 g/dl (6.4-8.2)
[2018-04-28] MEDS: LIDOCAINE 5% TOPICAL PATCH TP SCH (12:29)
[2018-04-28] MEDS ORDERED: hydrOXYzine PAMOATE 50 MG CAPSULE (FP) PO PRN (14:45)
--- NOTE | 2018-04-28 14:56 | PN ---
Psychiatric Progress Note Vital Signs: Vital Signs Period Temp Pulse Resp BP Sys/[place] Pulse Ox Last 24 Hr 97.0 F-98.3 F 62-95 16-18 106-124/68-84 Date of Session: 04/28/18 Chief Complaint:: Follow up HPI: Patient addressing Alcohol, Cocaine and sedative Dependence comorbid with Nicotine Dependence, Posttraumatic Stress Disorder, Substance-Induced Mood Disorder and Substance-Induced Sleep Disorder ROS: History of Genital herpes, CVA, Anemia, LBP/Herniated Disc Current Medications: Active Medications Generic Name Dose Route Start Last Admin Trade Name Freq PRN Reason Stop Dose Admin Acetaminophen 650 mg 04/27/18 12:02 04/28/18 10:13 Tylenol - PO 650 mg Q4H PRN Administration FEVER Al Hydroxide/Mg Hydroxide 30 ml 04/27/18 12:02 Mylanta Oral Suspension - PO Q6H PRN DYSPEPSIA Chlordiazepoxide HCl 25 mg 04/28/18 17:00 Librium - PO 04/29/18 11:01 [id number] ANABELLE Chlordiazepoxide HCl 15 mg 04/29/18 17:00 Librium - PO 04/30/18 11:01 [id number] ANABELLE Chlordiazepoxide HCl 25 mg 04/27/18 12:02 04/27/18 13:53 Librium - PO 04/30/18 12:01 25 mg Q4H PRN Administration WITHDRAWAL(CONT SUBST) Chlordiazepoxide HCl 10 mg 04/30/18 17:00 Librium - PO 05/01/18 11:01 [id number] ANABELLE Emtricitabine/Tenofovir 1 tab 04/28/18 10:00 04/28/18 10:09 Truvada PO 1 tab DAILY ANABELLE Administration Escitalopram Oxalate 20 mg 04/28/18 10:00 04/28/18 10:08 Lexapro - PO 20 mg DAILY ANABELLE Administration Eucalyptus/Menthol/Phenol/Sorbitol 1 each 04/27/18 12:02 Cepastat Lozenge - MM Q4H PRN SORE THROAT Guaifenesin 10 ml 04/27/18 12:02 Robitussin Dm - PO Q6H PRN COUGH Hydroxyzine Pamoate 50 mg 04/28/18 14:45 Vistaril - PO Q4H PRN ANXIETY Ibuprofen 400 mg 04/27/18 12:02 Motrin - PO Q6H PRN PAIN LEVEL 4-6 Lidocaine 1 patch 04/27/18 13:30 04/28/18 12:29 Lidoderm Patch - TP 1 patch DAILY ANABELLE Administration Loperamide HCl 4 mg 04/27/18 12:02 04/27/18 13:52 Imodium - PO 4 mg Q6H PRN Administration DIARRHEA Magnesium Citrate 300 ml 04/27/18 12:02 Citroma - PO Q48H PRN CONSTIPATION Magnesium Hydroxide 30 ml 04/27/18 12:02 Milk Of Magnesia - PO DAILY PRN CONSTIPATION Melatonin 5 mg 04/27/18 22:00 Melatonin PO HS PRN INSOMNIA Miscellaneous 1 each 04/27/18 22:00 04/27/18 22:21 Lidoderm Patch Removal MC Not Given DAILY@2200 ANABELLE Nicotine Polacrilex 4 mg 04/27/18 12:02 Nicorette Gum - BUC Q2H PRN NICOTINE REPLACEMENT RX Multivit/Folic Acid/Iron 1 tab 04/28/18 10:00 04/28/18 10:08 Vitamins (Sjr) - PO 1 tab DAILY ANABELLE Administration Pseudoephedrine/Triprolidine 1 combo 04/27/18 12:02 Actifed - PO TID PRN NASAL CONGESTION Quetiapine Fumarate 200 mg 04/28/18 22:00 Seroquel - PO BID ANABELLE Quetiapine Fumarate 200 mg 04/28/18 14:45 Seroquel - PO 04/28/18 14:46 ONCE ONE Thiamine HCl 100 mg 04/27/18 22:00 04/27/18 22:21 Vitamin B1 - PO 100 mg HS ANABELLE Administration Valacyclovir HCl 500 mg 04/28/18 10:00 04/28/18 10:08 Valtrex - PO 500 mg DAILY ANABELLE Administration Current Side Effect: No Lab tests ordered: Yes Lab tests reviewed: Yes Provider note:: Patient requesting to have Seroquel dosage increased. He was seen yesterday by Dr Marx and was prescribed a reduced dosage of 200 mg po HS to avoid excessive sedation in lieu of 300 mg po BID(home medication). Patient shows no sign of sedation. He is alert and well oriented. Total face to face time:: 25 Mental Status Exam - Mental Status Exam Alert and Oriented to: Time, Place, Person Cognitive Function: Fair Patient Appearance: Well Groomed Mood: Hopeful, Euthymic Affect: Appropriate Patient Behavior: Cooperative Speech Pattern: Clear Voice Loudness: Normal Thought Process: Intact, Goal Oriented Thought Disorder: Not Present Hallucinations: Denies Suicidal Ideation: Denies Homicidal Ideation: Denies Insight/Judgement: Fair Sleep: Poorly Appetite: Good Muscle strength/Tone: Normal Gait/Station: Normal Psychiatric Treatment Plan - Problem List (1) Alcohol dependence with uncomplicated withdrawal Current Visit: Yes (2) Cocaine dependence Current Visit: Yes Qualifiers: Substance use status: uncomplicated Qualified Code(s): F14.20 - Cocaine dependence, uncomplicated (3) Sedative, hypnotic or anxiolytic dependence with withdrawal, uncomplicated Current Visit: Yes (4) Post traumatic stress disorder (PTSD) Current Visit: Yes Comment: As per self-report. On medications. Followed at [facility] in the [place]. (5) Substance induced mood disorder Current Visit: Yes (6) Substance-induced sleep disorder Current Visit: Yes (7) Nicotine dependence Current Visit: Yes Qualifiers: Nicotine product type: cigarettes Substance use status: in withdrawal Qualified Code(s): F17.213 - Nicotine dependence, cigarettes, with withdrawal (8) Chronic back pain Current Visit: Yes Qualifiers: Back pain location: low back pain Back pain laterality: midline Sciatica presence: without sciatica Qualified Code(s): M54.5 - Low back pain; G89.29 - Other chronic pain (9) Genital herpes Current Visit: No Qualifiers: Herpes simplex infection site: unspecified Qualified Code(s): A60.00 - Herpesviral infection of urogenital system, unspecified (10) Left shoulder tendinitis Current Visit: No Initial treatment plan: 1) Increase Seroquel to 200 mg po BID. 2) Continue inpatient detoxification
[2018-04-28] MEDS ORDERED: QUEtiapine FUMARATE 200 MG TABLET PO ONE (15:30)
--- NOTE | 2018-04-28 16:09 | PN ---
[facility] CIWA - CIWA Score Nausea/Vomitin Muscle Tremors: 4-Moderate,w/Arms Extend Anxiety: 4-Mod. Anxious/Guarded Agitation: 4-Moderately Restless Paroxysmal Sweats: 3 Orientation: 0-Oriented Tacttile Disturbances: 0-None Auditory Disturbances: 0-None Visual Disturbances: 0-None Headache: 0-None Present CIWA-Ar Total Score: 17 [facility] Progress Note (SOAP) Subjective: Diarrhea, chills, headache, sweating, interrupted sleep Objective: 04/28/18 16:08 Last Vital Signs Temp Pulse Resp BP Pulse Ox 97.2 F L 84 18 118/80 04/28/18 13:13 04/28/18 13:13 04/28/18 13:13 04/28/18 13:13 Laboratory Tests 04/28/18 04/28/18 04/28/18 07:30 07:30 07:30 WBC 5.8 RBC 4.09 Hgb 12.0 Hct 36.6 MCV 89.5 MCH 29.3 MCHC 32.7 RDW 14.7 Plt Count 253 MPV 8.3 Sodium 140 Potassium 4.0 Chloride 107 Carbon Dioxide 27 Anion Gap 6 L BUN 14 Creatinine 1.1 Creat Clearance w eGFR > 60 Random Glucose 88 Calcium 8.3 L Total Bilirubin 0.2 AST 13 L ALT 21 Alkaline Phosphatase 75 Total Protein 6.9 Albumin 3.1 L RPR Titer Nonreactive Labs reviewed Assessment: 04/28/18 16:09 Withdrawal symptoms Plan: Continue detox Encouraged PO water intake
[2018-04-28] MEDS ORDERED: chlordiazePOXIDE HCL 25 MG CAPSULE PO SCH (17:00)
[2018-04-28 17:49] VITALS: BP 119/87; PULSE 79; TEMP 98.3
--- NOTE | 2018-04-28 19:49 | DS ---
[facility] Detox Discharge Summary Admission Date: 04/27/18 Discharge Date: 04/28/18 - History Present History: Alcohol Dependence, Cannabis Dependence, Cocaine Dependence, Sedative Dependence Additional Comments: Admitted with alcohol and benzo withdrawal. - Physical Exam Results Vital Signs: Vital Signs Temperature 98.3 F 04/28/18 17:48 Pulse Rate 79 04/28/18 17:48 Respiratory Rate 20 04/28/18 17:48 Blood Pressure 119/87 04/28/18 17:48 O2 Sat by Pulse Oximetry (%) Pertinent Admission Physical Exam Findings: Admitted for alcohol and benzo withdrawal. Started on detox protocol. Medical history reviewed. Laboratory Last Values WBC 5.8 K/mm3 (4.0-10.0) 04/28/18 07:30 RBC 4.09 M/mm3 (4.00-5.60) 04/28/18 07:30 Hgb 12.0 GM/dL (11.7-16.9) 04/28/18 07:30 Hct 36.6 % (35.4-49) 04/28/18 07:30 MCV 89.5 fl (80-96) 04/28/18 07:30 MCH 29.3 pg (25.7-33.7) 04/28/18 07:30 MCHC 32.7 g/dl (32.0-35.9) 04/28/18 07:30 RDW 14.7 % (11.9-15.9) 04/28/18 07:30 Plt Count 253 K/MM3 (134-434) 04/28/18 07:30 MPV 8.3 fl (7.5-11.1) 04/28/18 07:30 Sodium 140 mmol/L (136-145) 04/28/18 07:30 Potassium 4.0 mmol/L (3.5-5.1) 04/28/18 07:30 Chloride 107 mmol/L (98-107) 04/28/18 07:30 Carbon Dioxide 27 mmol/L (21-32) 04/28/18 07:30 Anion Gap 6 MMOL/L (8-16) L 04/28/18 07:30 BUN 14 mg/dL (7-18) 04/28/18 07:30 Creatinine 1.1 mg/dL (0.55-1.3) 04/28/18 07:30 Creat Clearance w eGFR > 60 (>60) 04/28/18 07:30 Random Glucose 88 mg/dL (74-106) 04/28/18 07:30 Calcium 8.3 mg/dL (8.5-10.1) L 04/28/18 07:30 Total Bilirubin 0.2 mg/dL (0.2-1) 04/28/18 07:30 AST 13 U/L (15-37) L 04/28/18 07:30 ALT 21 U/L (13-61) 04/28/18 07:30 Alkaline Phosphatase 75 U/L (45-117) 04/28/18 07:30 Total Protein 6.9 g/dl (6.4-8.2) 04/28/18 07:30 Albumin 3.1 g/dl (3.4-5.0) L 04/28/18 07:30 RPR Titer Nonreactive (NONREACTIVE) 04/28/18 07:30 Labs reviewed. - Treatment Hospital Course: Detox Protocol Followed (Did not complete detox. Left AMA.) - Medication Discharge Medications: Ambulatory Orders Diclofenac Sodium [Diclofenac Sodium ER] 50 mg PO BID 07/19/17 Valacyclovir HCl [Valtrex -] 500 mg PO DAILY 07/19/17 Escitalopram Oxalate [Lexapro -] 20 mg PO DAILY #30 tablet 09/24/17 Quetiapine Fumarate [Seroquel -] 300 mg PO BID #60 tablet 09/24/17 Gabapentin [Neurontin -] 300 mg PO TID #90 capsule 09/26/17 Clindamycin Topical Solution [Cleocin 1% Topical Solution -] 0 ml TP DAILY 12/16 Docusate Sodium [Colace -] 100 mg PO TID 12/16/17 Emtricitabine/Tenofovir [Truvada] 1 tab PO DAILY 12/16/17 traZODone HCL [Trazodone HCl] 100 mg PO HS 12/16/17 hydrOXYzine PAMOATE [Vistaril -] 50 mg PO BID@0900,2100 PRN 04/27/18 - Diagnosis (1) Alcohol dependence with uncomplicated withdrawal Status: Acute (2) Genital herpes Status: Chronic Qualifiers: Herpes simplex infection site: unspecified Qualified Code(s): A60.00 - Herpesviral infection of urogenital system, unspecified (3) Sedative, hypnotic or anxiolytic dependence with withdrawal, uncomplicated Status: Acute (4) Cannabis dependence Status: Chronic (5) HIV (human immunodeficiency virus infection) Status: Chronic (6) Herpes Status: Chronic (7) Nicotine dependence Status: Chronic Qualifiers: Nicotine product type: cigarettes Substance use status: in withdrawal Qualified Code(s): F17.213 - Nicotine dependence, cigarettes, with withdrawal - AMA Did Patient Leave Against Medical Advice: Yes (A & O , gait steady at time of departure)
[2018-04-28] MEDS ORDERED: QUEtiapine FUMARATE 200 MG TABLET PO SCH ×2 (22:00)
[2018-04-29] MEDS ORDERED: chlordiazePOXIDE 5 MG CAPSULE PO SCH (17:00)
[2018-04-30] MEDS ORDERED: chlordiazePOXIDE HCL 10 MG CAPSULE PO SCH (17:00)
== END 2018-04-28 19:44 | disposition left against medical advice (07) | DRG 770 ==
LOC: YASAS 09:29 → Y3N 13:14
PROC: HZ2ZZZZ Detoxification Services for Substance Abuse Treatment (ICD-10-PCS; principal; 2018-04-27)
DX: F10.230 Alcohol dependence with withdrawal, uncomplicated (principal); F13.230 Sedative, hypnotic or anxiolytic dependence with withdrawal, uncomplicated; F14.20 Cocaine dependence, uncomplicated; F17.213 Nicotine dependence, cigarettes, with withdrawal; F19.24 Other psychoactive substance dependence with psychoactive substance-induced mood disorder; F19.282 Other psychoactive substance dependence with psychoactive substance-induced sleep disorder; Z21 Asymptomatic human immunodeficiency virus [HIV] infection status; G47.00 Insomnia, unspecified; A60.00 Herpesviral infection of urogenital system, unspecified; M51.26 Other intervertebral disc displacement, lumbar region; M54.5 Low back pain; G89.29 Other chronic pain; D64.9 Anemia, unspecified; M75.82 Other shoulder lesions, left shoulder; Z86.73 Personal history of transient ischemic attack (TIA), and cerebral infarction without residual deficits
CPT/HCPCS: 36415; 80053; 85027; 86593